=== PATIENT | female | born 1990 | race Caucasian/White ===

== ENCOUNTER → 2017-09-08 | Outpatient (CLI) | payer MEDICAID ==
--- NOTE | 2017-09-08 15:30 | Diagnostic Imaging Report ---
INDICATION: survey. TECHNIQUE: Multiple real-time grayscale images were obtained over the gravid uterus. COMPARISON: None FINDINGS: heart rate is 133 beats per minute. The placenta is anterior and extends to the lower uterine segment at 1.6 cm from the internal os. The cervix is 5.9 cm in length and is closed. There is adequate amniotic fluid seen. The kidneys, umbilical arteries, bladder, stomach, the posterior fossa and lateral ventricles appear unremarkable. The spine appear unremarkable. The four-chamber view and cord insertion are not well seen. The maternal adnexa appear obscured by the gravid uterus. Biometrical measurements are as follows: Biparietal 4.67 cm, age 20 weeks 1 days. Head circumference 17.60 cm, age 20 weeks 1 days. Abdominal circumference 15.80 cm, age 21 weeks 0 days. Femur length 3.13 cm, age 19 weeks 6 days. Sonographic estimate age: 20 weeks 2 days. Sonographic estimated date of delivery: 01-24. Estimated Weight: 348 gm (+/- 51 gm). LMP percentile: 73%. heart rate: 133 beats per minute. number: 1 of 1. IMPRESSION: 1. Followup within 2 weeks is suggested to reassess cord insertion and four-chamber view not well seen due to position. 2. Low-lying placenta. Dictated by: Dictated on workstation # [id number]
== END ==
LOC: RAD 10:58
PROVIDERS: ATTEND Obstetrics & Gynecology
DX: Z34.92 Encounter for supervision of normal pregnancy, unspecified, second trimester (principal); Z3A.20 20 weeks gestation of pregnancy
CPT/HCPCS: 76805

== ENCOUNTER → 2017-11-07 | Outpatient (CLI) | payer MEDICAID ==
--- NOTE | 2017-11-10 09:43 | Diagnostic Imaging Report ---
INDICATION: Followup low lying placenta. TECHNIQUE: Multiple real-time grayscale images were obtained over the gravid uterus. COMPARISON: 09/08/2017. FINDINGS: The fetus is in breech presentation. The placenta is anteriorly located and has appropriately migrated superiorly. There is no marginal placenta or placenta previa. Cervix is closed measuring approximately 4 cm in length. heart rate measures 128 beats per minute. The AILYN is normal at 12 cm. Limited anatomy survey demonstrates the umbilical cord insertion and four-chamber heart to be normal. IMPRESSION: 1. Resolution of low-lying/marginal placenta. 2. Umbilical cord insertion and four-chamber heart are both normal. Dictated by: Dictated on workstation # [id number]
== END ==
LOC: RAD 11:27
PROVIDERS: ATTEND Obstetrics & Gynecology
DX: O44.42 Low lying placenta NOS or without hemorrhage, second trimester (principal); Z3A.28 28 weeks gestation of pregnancy
CPT/HCPCS: 76816

== ENCOUNTER 2017-11-20 11:15 | Outpatient (CLI) | payer MEDICAID ==
[~2017-11-20] VITALS: Ht 167.6 cm; Wt 75.3 kg
[2017-11-20 11:25] VITALS: BP 102/59
--- NOTE | 2017-11-20 13:25 | Diagnostic Imaging Report ---
INDICATION: Evaluate placenta. FINDINGS: A biophysical profile was performed. Fetus is in a cephalic presentation. heart rate is recorded at 142 beats per minute. The amniotic fluid index is approximately 14 cm. The placenta is anterior. Biophysical profile score is 6/8 with a 2-point deduction given for lack of breathing movements. IMPRESSION: Biophysical profile score of 6/8, as described. Dictated by: Dictated on workstation # [id number]
[2017-11-20] MEDS ORDERED: PREN-53 PO (13:34)
[2017-11-20] MEDS ORDERED: FERR-84 PO (13:34)
[2017-11-20] MEDS ORDERED: INFLUENZA TRIvalent 2017-2018 0.5 ML/45 MCG SYR IM ONE (14:30)
--- NOTE | 2017-11-21 11:21 | Physician Query-Final Dx ---
ADALGISA LO 11/21/17 1121: Clinic Account Progress/Dx Physician Query: Please give diagnosis Date of Service Nov 20, 2017 at 11:15 NAYLA KUMAR DO 11/21/17 1522: Clinic Account Progress/Dx DIAGNOSIS: Diagnosis 30 week IUP Fall in ADALG[facility] LO Nov 21, 2017 11:21 NAYLA KUMAR DO Nov 21, 2017 15:22
== END 2017-11-20 13:44 | disposition home or self-care (01) ==
LOC: WSo 11:15 → LDRP 11:15 → WSo 13:44
PROVIDERS: ATTEND Obstetrics & Gynecology
DX: Z04.3 Encounter for examination and observation following other accident (principal); Z3A.30 30 weeks gestation of pregnancy
CPT/HCPCS: 76819; 99213

== ENCOUNTER 2018-01-12 05:35 | Outpatient (CLI) | payer MEDICAID ==
[~2018-01-12] VITALS: Ht 167.6 cm; Wt 81.6 kg
[~2018-01-12 05:35] MED LIST: FERR-84 PO; PREN-53 PO
[2018-01-25] MEDS ORDERED: ACHD5005 PO (10:53)
[2018-01-25] MEDS ORDERED: IBUP-844 PO (10:53)
== END 2018-01-12 10:08 ==
LOC: PREOP 05:35
PROVIDERS: ATTEND Obstetrics & Gynecology
DX: Z01.818 Encounter for other preprocedural examination (principal); O34.219 Maternal care for unspecified type scar from previous cesarean delivery; Z40.02 Encounter for prophylactic removal of ovary(s)

== ENCOUNTER 2018-01-23 03:36 | Inpatient (IN) | payer MEDICAID ==
[~2018-01-23] VITALS: Ht 167.6 cm; Wt 82.6 kg
[2018-01-23 11:05] VITALS: BP 108/67
[2018-01-23] MEDS ORDERED: metroNIDAZOLE 500MG/100ML IVPB 100 ML IV ONE (11:15)
[2018-01-23] MEDS ORDERED: ceFAZolin INJECTION 1,000 MG in NS (IVPB) 100 ML IV ONE (11:15)
[2018-01-23] MEDS: LACTATED RINGERS 1,000 ML IV PRN ×3 (11:40→14:32)
--- NOTE | 2018-01-23 11:49 | Progress Note-Pre Operative ---
Pre-Operative Progress Note H&P Reviewed The H&P was reviewed, patient examined and no changes noted. Date Seen by Provider: Jan 23, 2018 Time Seen by Provider: 11:45 Date H&P Reviewed: Jan 23, 2018 Time H&P Reviewed: :45 Pre-Operative Diagnosis: previous section, ovarian cancer risk reduction RICHARD CHIU DO Jan 23, 2018 11:49
[2018-01-23] MEDS ORDERED: BUPIVACAINE SPINAL 0.75% (SENSORCAINE) 2 ML AMP ONE ×2 (11:53→13:20)
[2018-01-23] MEDS ORDERED: raNItidine 50 MG/2 ML INJ (ZANTAC) ONE (11:54)
[2018-01-23] MEDS ORDERED: METOCLOPRAMIDE INJ 10 MG/2 ML (REGLAN) ONE (11:54)
[2018-01-23] MEDS ORDERED: fentaNYL INJECTION 100 MCG/2 ML AMP ONE (11:55)
[2018-01-23] MEDS ORDERED: CITRIC ACID/SOB CIT (BICITRA) 30 ML UDC ONE (11:55)
[2018-01-23] MEDS ORDERED: OXYTOCIN/NORMAL SALINE 1,000 ML IV ONE (11:55)
[2018-01-23 11:56] LABS: BASOPHILS % (AUTO) 0 % (0-10); EOSINOPHILS # (AUTO) 0.1 10^3/uL (0.0-0.3); EOSINOPHILS % (AUTO) 1 % (0-10); HEMATOCRIT 35 % (35-52); HEMOGLOBIN 11.5 G/DL (11.5-16.0); LYMPHOCYTES # (AUTO) 1.3 X 10^3 (1.0-4.0); LYMPHOCYTES % (AUTO) 14 % (12-44); MEAN CORPUSCULAR HEMOGLOBIN 28 PG (25-34); MEAN CORPUSCULAR HGB CONC 33 G/DL (32-36); MEAN CORPUSCULAR VOLUME 86 FL (80-99); MEAN PLATELET VOLUME 11.4 FL (7.4-10.4); MONOCYTES # (AUTO) 0.8 X 10^3 (0.0-1.0); MONOCYTES % (AUTO) 8 % (0-12); NEUTROPHILS % (AUTO) 77 % (42-75); PLATELET COUNT 112 10^3/uL (130-400); RED BLOOD COUNT 4.08 10^6/uL (4.35-5.85); RED CELL DISTRIBUTION WIDTH 18.6 % (10.0-14.5); WHITE BLOOD COUNT 9.1 10^3/uL (4.3-11.0)
[2018-01-23] MEDS ORDERED: METOCLOPRAMIDE INJ 10 MG/2 ML (REGLAN) IV ONE (12:00)
[2018-01-23] MEDS ORDERED: CATHETER FLUSH 10 ML SYR IV PRN (12:00)
[2018-01-23] MEDS ORDERED: CITRIC ACID/SOB CIT (BICITRA) 30 ML UDC PO ONE (12:00)
[2018-01-23] MEDS ORDERED: FAMOTIDINE 20MG/2ML IV (PEPCID) IV ONE (12:00)
[2018-01-23 12:11] LABS: BILIRUBIN,URINE NEGATIVE (NEGATIVE); CLARITY,URINE CLEAR; COLOR,URINE YELLOW; GLUCOSE, URINE (UA) NEGATIVE (NEGATIVE); KETONES,URINE 1+ (NEGATIVE); LEUKOCYTE ESTERASE ,URINE NEGATIVE (NEGATIVE); NITRITE,URINE NEGATIVE (NEGATIVE); PH,URINE 8 (5-9); PROTEIN,URINE NEGATIVE (NEGATIVE); UROBILINOGEN,URINE 1 MG/DL (NORMAL)
[2018-01-23 12:18] LABS: BACTERIA,URINE FEW /HPF
[2018-01-23 12:25] VITALS: BP 115/63
[2018-01-23] MEDS ORDERED: raNItidine 50 MG/2 ML INJ (ZANTAC) IV ONE (12:30)
[2018-01-23] MEDS ORDERED: LACTATED RINGERS 1,000 ML IV ONE (14:28)
[2018-01-23] MEDS ORDERED: D5 LR IV SOLUTION 1,000 ML IV SCH (14:57)
[2018-01-23] MEDS ORDERED: PHENYLEPHRINE 100 MCG/ML 10 ML (ANESTHESIA) SYR ONE (14:58)
[2018-01-23] MEDS ORDERED: HYDROmorphone 2 MG/ML VIAL (DILAUDID) IVP PRN (15:00)
[2018-01-23] MEDS ORDERED: MEASLES,MUMPS,RUBELLA 1 EA INJ SC SCH (15:00)
[2018-01-23] MEDS ORDERED: TETANUS,DIPTH,PERTUSS P/F (BOOSTRIX) 0.5 ML VIAL IM SCH (15:00)
--- NOTE | 2018-01-23 15:04 | Cesarean Section Operative ---
Procedure Procedure Note Pre-operative Diagnosis: Joleen Cordova is a 25 /Para 6 /3 ,Gestational Age39 3/7 weeks with history of previous section, ovarian cancer risk reduction. Post-operative Diagnosis: same, evidence of inactive endometriosis, left paratubal/ovarian cyst Procedure: Repeat low transverse section; risk reducing salpingectomy Physician: RICHARD CHIU Estimated blood loss: 600 mL Disposition: stable Findings: Viable male infant, Apgars 4/8, weight 9#8 oz, intact placenta, 3vc, normal appearing uterus, tubes, and ovaries. Indications:Joleen Cordova is a 27 /Para 6 /3 ,Gestational Age39 3/7 weeks with history of previous section, ovarian cancer risk reduction. Procedure Details: The patient was seen in pre-op and the procedure was discussed with the patient in full, including the risks, benefits, and alternatives. All questions were answered. The patient was taken to the operating room and a time out was performed, verifying patient and procedure. After spinal anesthesia was placed by our anesthesia colleagues, the patient was placed in the dorsal supine with leftward tilt for uterine displacement.~ Her abdomen was then prepped and draped in the typical sterile fashion. A Pfannenstiel skin incision was made using a scalpel and carried down through the underlying fascia. The fascia was incised in the midline and tented up using Lexii clamps. On both the inferior and superior fascia side the rectus muscle was dissected off bluntly and sharply using Rossi scissors. The peritoneum was identified and entered bluntly in the midline. This was then stretched laterally using manual strength. After entering the abdominal cavity and confirming lack of intraperitoneal adhesions, a large Johnny retractor was placed and the lower uterine segment was visualized. A bladder flap was created with the use of Metzenbaum scissors.~ A scalpel was utilized to make a low transverse uterine incision. Amniotomy was performed with an Allis clamp with return of clear fluid. The 's head was grasped and brought to the level of the incision. Fundal pressure was applied and was delivered without difficulty. Mouth and nares were suctioned with bulb suction. After the umbilical cord was clamped and cut, the was handed off to the pediatric staff. A sample of cord blood was then obtained. The placenta was delivered intact via uterine massage. The uterus was exteriorized and cleared of all clots and debris. The uterine incision was closed using 0 Vicryl in a running locked fashion. A second imbricated layer was placed using 0 Vicryl in a running fashion as well. The uterus was flexed forward and the posterior rectouterine space was inspected and cleared of all clots and debris. Again the hysterotomy site was examined and hemostasis was observed. The bilateral tubes and ovaries were examined. There was a right peritubal/ovarian cyst on the surface of the right ovary. In addition there was evidence of scarring along the tubes and the posterior of the uterus, possibly consistent with old endometriosis. The mesosalpinx were incised bilaterally with the bovie and then the LigaSure was used to clamp the cornu and then along the mesosalpinx bilaterally to remove the tube. The entire cystic area was also removed and then the area on the ovary was cauterized to ensure complete removal. The uterus was placed back into the abdominal cavity and abdominal gutters were cleared of all clots and debris. A final check of the uterine incision showed it to be hemostatic. The peritoneum was closed using 3-0 Vicryl in a running fashion. The fascia was closed with 0 Vicryl in a running fashion. The subcutaneous space was hemostatic, and irrigated. The subcutaneous space was closed with 3-0 Plain in several single interrupted stitches. The skin was then closed using 4-0 Monocryl in a running subcuticular fashion. The skin edges were reapproximated together and were hemostatic. [place] was placed. A pressure dressing was applied. All sponge, lap and needle counts were correct at the end of the procedure per nursing. Vitals - Labs Vital Signs - I&O Vital Signs Date Time Temp Pulse Resp B/P (MAP) Pulse Ox O2 Delivery O2 Flow Rate FiO2 01/23/18 12:25 98.4 82 18 115/63 (80) 98 Room Air 01/23/18 11:05 98.0 84 18 108/67 (81) 98 Room Air Labs Laboratory Tests 01/23/18 11:40: White Blood Count 9.1, Red Blood Count 4.08L, Hemoglobin 11.5, Hematocrit 35, Mean Corpuscular Volume 86, Mean Corpuscular Hemoglobin 28, Mean Corpuscular Hemoglobin Concent 33, Red Cell Distribution Width 18.6H, Platelet Count 112L, Mean Platelet Volume 11.4H, Neutrophils (%) (Auto) 77H, Lymphocytes (%) (Auto) 14, Monocytes (%) (Auto) 8, Eosinophils (%) (Auto) 1, Basophils (%) (Auto) 0, Neutrophils # (Auto) 7.0, Lymphocytes # (Auto) 1.3, Monocytes # (Auto) 0.8, Eosinophils # (Auto) 0.1, Basophils # (Auto) 0.0 01/23/18 12:00: Urine Color YELLOW, Urine Clarity CLEAR, Urine pH 8, Urine Specific [place] 1.010L, Urine Protein NEGATIVE, Urine Glucose (UA) NEGATIVE, Urine Ketones 1+H, Urine Nitrite NEGATIVE, Urine Bilirubin NEGATIVE, Urine Urobilinogen 1, Urine Leukocyte Esterase NEGATIVE, Urine RBC (Auto) NEGATIVE, Urine RBC 2-5H, Urine WBC NONE, Urine Squamous Epithelial Cells 5-10, Urine Crystals NONE, Urine Bacteria FEWH, Urine Casts NONE, Urine Mucus SMALLH, Urine Culture Indicated NO RICHARD CHIU DO Jan 23, 2018 15:04
[2018-01-23] MEDS: OXYTOCIN/NORMAL SALINE 500 ML IV SCH ×2 (15:10→18:09)
[2018-01-23] MEDS: KETOROLAC 30 MG/ML VIAL IVP SCH ×2 (16:32→21:55)
[2018-01-23] MEDS: HYDROcodone/APAP 5 MG/325 MG (LORTAB) TAB PO PRN ×2 (18:12→18:54)
[2018-01-23 20:35] VITALS: BP 112/68
[2018-01-23] MEDS: CATHETER FLUSH 10 ML SYR IV SCH (21:55)
[2018-01-24 00:04] VITALS: BP 99/64
[2018-01-24] MEDS: HYDROcodone/APAP 5 MG/325 MG (LORTAB) TAB PO PRN ×3 (00:04→19:59)
[2018-01-24] MEDS: DOCUSATE SODIUM 100 MG (COLACE) CAP PO SCH ×3 (00:04→19:59)
[2018-01-24 04:16] VITALS: BP 98/65
[2018-01-24] MEDS: CATHETER FLUSH 10 ML SYR IV SCH (04:16)
[2018-01-24] MEDS: KETOROLAC 30 MG/ML VIAL IVP SCH ×2 (04:16→11:02)
[2018-01-24 05:46] LABS: BASOPHILS % (AUTO) 0 % (0-10); EOSINOPHILS # (AUTO) 0.1 10^3/uL (0.0-0.3); EOSINOPHILS % (AUTO) 1 % (0-10); HEMATOCRIT 31 % (35-52); HEMOGLOBIN 10.3 G/DL (11.5-16.0); LYMPHOCYTES # (AUTO) 1.4 X 10^3 (1.0-4.0); LYMPHOCYTES % (AUTO) 19 % (12-44); MEAN CORPUSCULAR HEMOGLOBIN 28 PG (25-34); MEAN CORPUSCULAR HGB CONC 33 G/DL (32-36); MEAN CORPUSCULAR VOLUME 86 FL (80-99); MEAN PLATELET VOLUME 10.8 FL (7.4-10.4); MONOCYTES # (AUTO) 0.8 X 10^3 (0.0-1.0); MONOCYTES % (AUTO) 10 % (0-12); NEUTROPHILS # (AUTO) 5.4 X 10^3 (1.8-7.8); NEUTROPHILS % (AUTO) 70 % (42-75); PLATELET COUNT 100 10^3/uL (130-400); RED BLOOD COUNT 3.63 10^6/uL (4.35-5.85); RED CELL DISTRIBUTION WIDTH 18.6 % (10.0-14.5); WHITE BLOOD COUNT 7.6 10^3/uL (4.3-11.0)
[2018-01-24 08:00] VITALS: BP 107/73
[2018-01-24] MEDS: FERROUS SULF 325 MG (IRON) TAB PO SCH (08:53)
--- NOTE | 2018-01-24 11:02 | Postpartum Progress Note ---
Post Op Post-operative Day #1 RLTCS with RRS Subjective: Patient is without complaints. Ambulating, voiding after zhou removed. Tolerating a regular diet without nausea or vomiting. Normal lochia. Pain is well controlled with oral pain medications. Passing flatus. bottle feeding. baby still on O2 Objective: Laboratory Tests Test 01/23/18 11:40 01/23/18 12:00 01/24/18 05:31 Range/Units White Blood Count 9.1 7.6 4.3-11.0 10^3/uL Red Blood Count 4.08 L 3.63 L 4.35-5.85 10^6/uL Hemoglobin 11.5 10.3 L 11.5-16.0 G/DL Hematocrit 35 31 L 35-52 % Mean Corpuscular Volume 86 86 80-99 FL Mean Corpuscular Hemoglobin 28 28 25-34 PG Mean Corpuscular Hemoglobin Concent 33 33 32-36 G/DL Red Cell Distribution Width 18.6 H 18.6 H 10.0-14.5 % Platelet Count 112 L 100 L 130-400 10^3/uL Mean Platelet Volume 11.4 H 10.8 H 7.4-10.4 FL Neutrophils (%) (Auto) 77 H 70 42-75 % Lymphocytes (%) (Auto) 14 19 12-44 % Monocytes (%) (Auto) 8 10 0-12 % Eosinophils (%) (Auto) 1 1 0-10 % Basophils (%) (Auto) 0 0 0-10 % Neutrophils # (Auto) 7.0 5.4 1.8-7.8 X 10^3 Lymphocytes # (Auto) 1.3 1.4 1.0-4.0 X 10^3 Monocytes # (Auto) 0.8 0.8 0.0-1.0 X 10^3 Eosinophils # (Auto) 0.1 0.1 0.0-0.3 10^3/uL Basophils # (Auto) 0.0 0.0 0.0-0.1 10^3/uL Urine Color YELLOW Urine Clarity CLEAR Urine pH 8 5-9 Urine Specific [place] 1.010 L 1.016-1.022 Urine Protein NEGATIVE NEGATIVE Urine Glucose (UA) NEGATIVE NEGATIVE Urine Ketones 1+ H NEGATIVE Urine Nitrite NEGATIVE NEGATIVE Urine Bilirubin NEGATIVE NEGATIVE Urine Urobilinogen 1 NORMAL MG/DL Urine Leukocyte Esterase NEGATIVE NEGATIVE Urine RBC (Auto) NEGATIVE NEGATIVE Urine RBC 2-5 H /HPF Urine WBC NONE /HPF Urine Squamous Epithelial Cells 5-10 /HPF Urine Crystals NONE /LPF Urine Bacteria FEW H /HPF Urine Casts NONE /LPF Urine Mucus SMALL H /LPF Urine Culture Indicated NO Physical Exam: General - Alert and oriented, no apparent distress Abdomen - Soft, appropriately tender to palpation, non-distended, fundus firm at umbilicus Incision - clean, dry and intact; no erythema or induration, no drainage Extremities - no edema, negative Gracie's bilaterally Assessment: 1. post-operative day # 1, status post RLTCS with RRS. Recovering well, hemodynamically stable 2. Acute blood loss anemia 3. gestational thrombocytopenia, no evidence of bleeding. Plan: Routine post-operative care. Encourage breast feeding. Encourage ambulation. VTE prophylaxis: SCDs. Ferrous sulfate supplementation. Plan for discharge tomorrow Vitals - Labs Vital Signs - I&O Vital Signs Date Time Temp Pulse Resp B/P (MAP) Pulse Ox O2 Delivery O2 Flow Rate FiO2 01/24/18 08:00 98.6 71 18 107/73 (84) 97 Room Air 01/24/18 04:16 97.7 62 16 98/65 (76) 97 Room Air 01/24/18 00:04 98.0 69 18 99/64 (76) 97 Room Air 01/23/18 20:35 98.2 77 18 112/68 (83) 98 Room Air 01/23/18 12:25 98.4 82 18 115/63 (80) 98 Room Air 01/23/18 11:05 98.0 84 18 108/67 (81) 98 Room Air I & O 01/24/18 07:00 Intake Total 5382 ml Output Total 1130 ml Balance 4252 ml Labs Laboratory Tests 01/23/18 11:40: White Blood Count 9.1, Red Blood Count 4.08L, Hemoglobin 11.5, Hematocrit 35, Mean Corpuscular Volume 86, Mean Corpuscular Hemoglobin 28, Mean Corpuscular Hemoglobin Concent 33, Red Cell Distribution Width 18.6H, Platelet Count 112L, Mean Platelet Volume 11.4H, Neutrophils (%) (Auto) 77H, Lymphocytes (%) (Auto) 14, Monocytes (%) (Auto) 8, Eosinophils (%) (Auto) 1, Basophils (%) (Auto) 0, Neutrophils # (Auto) 7.0, Lymphocytes # (Auto) 1.3, Monocytes # (Auto) 0.8, Eosinophils # (Auto) 0.1, Basophils # (Auto) 0.0 01/23/18 12:00: Urine Color YELLOW, Urine Clarity CLEAR, Urine pH 8, Urine Specific [place] 1.010L, Urine Protein NEGATIVE, Urine Glucose (UA) NEGATIVE, Urine Ketones 1+H, Urine Nitrite NEGATIVE, Urine Bilirubin NEGATIVE, Urine Urobilinogen 1, Urine Leukocyte Esterase NEGATIVE, Urine RBC (Auto) NEGATIVE, Urine RBC 2-5H, Urine WBC NONE, Urine Squamous Epithelial Cells 5-10, Urine Crystals NONE, Urine Bacteria FEWH, Urine Casts NONE, Urine Mucus SMALLH, Urine Culture Indicated NO 01/24/18 05:31: White Blood Count 7.6, Red Blood Count 3.63L, Hemoglobin 10.3L, Hematocrit 31L, Mean Corpuscular Volume 86, Mean Corpuscular Hemoglobin 28, Mean Corpuscular Hemoglobin Concent 33, Red Cell Distribution Width 18.6H, Platelet Count 100L, Mean Platelet Volume 10.8H, Neutrophils (%) (Auto) 70, Lymphocytes (%) (Auto) 19 , Monocytes (%) (Auto) 10, Eosinophils (%) (Auto) 1, Basophils (%) (Auto) 0, Neutrophils # (Auto) 5.4, Lymphocytes # (Auto) 1.4, Monocytes # (Auto) 0.8, Eosinophils # (Auto) 0.1, Basophils # (Auto) 0.0 RICHARD CHIU DO Jan 24, 2018 11:02
[2018-01-24 13:37] VITALS: BP 102/70
[2018-01-24] MEDS: IBUPROFEN 600 MG (MOTRIN) TAB PO SCH ×2 (15:04→20:49)
[2018-01-24 20:00] VITALS: BP 104/70
[2018-01-25 01:55] VITALS: BP 103/63
[2018-01-25] MEDS: IBUPROFEN 600 MG (MOTRIN) TAB PO SCH ×3 (01:55→14:51)
[2018-01-25 05:34] LABS: BASOPHILS % (AUTO) 0 % (0-10); EOSINOPHILS # (AUTO) 0.1 10^3/uL (0.0-0.3); EOSINOPHILS % (AUTO) 1 % (0-10); HEMATOCRIT 33 % (35-52); HEMOGLOBIN 10.7 G/DL (11.5-16.0); LYMPHOCYTES # (AUTO) 1.6 X 10^3 (1.0-4.0); LYMPHOCYTES % (AUTO) 25 % (12-44); MEAN CORPUSCULAR HEMOGLOBIN 28 PG (25-34); MEAN CORPUSCULAR HGB CONC 32 G/DL (32-36); MEAN CORPUSCULAR VOLUME 87 FL (80-99); MEAN PLATELET VOLUME 10.6 FL (7.4-10.4); MONOCYTES # (AUTO) 0.7 X 10^3 (0.0-1.0); MONOCYTES % (AUTO) 10 % (0-12); NEUTROPHILS # (AUTO) 4.2 X 10^3 (1.8-7.8); NEUTROPHILS % (AUTO) 64 % (42-75); PLATELET COUNT 108 10^3/uL (130-400); RED BLOOD COUNT 3.81 10^6/uL (4.35-5.85); RED CELL DISTRIBUTION WIDTH 18.5 % (10.0-14.5); WHITE BLOOD COUNT 6.6 10^3/uL (4.3-11.0)
--- NOTE | 2018-01-25 06:34 | Anesthesia-Regional Post-Op ---
Regional Patient Condition Mental Status: Alert, Oriented x3 Circulation: Same as Pre-Op Headache: Absent Sensation: Full Recovery Motor Block: Absent Post Op Complications Complications None Follow Up Care/Instructions Patient Instructions None needed. Anesthesia/Patient Condition Patient is doing well, no complaints, stable vital signs, no apparent adverse anesthesia problems. No complications reported per nursing. Pt seen 01-24-18 D/C home [place] [facility] [place]: No BOB SCHULTZ CRNA Jan 25, 2018 06:34
[2018-01-25 08:55] VITALS: BP 97/65
[2018-01-25] MEDS: FERROUS SULF 325 MG (IRON) TAB PO SCH (08:55)
[2018-01-25] MEDS: DOCUSATE SODIUM 100 MG (COLACE) CAP PO SCH (08:55)
[2018-01-25] MEDS ORDERED: ACHD5005 PO (10:53)
[2018-01-25] MEDS ORDERED: IBUP-844 PO (10:53)
--- NOTE | 2018-01-25 10:57 | Discharge Inst-Women's Service ---
Discharge Inst-Women's Serv Depart Medication/Instructions New, Converted or Re-Newed RX: RX on Chart Instructions nothing in the vagina for 6 weeks no driving for 1 week keep incision clean and dry Final Diagnosis Previous section risk reduction of ovarian cancer gestational thrombocytopenia mild acute blood loss anemia Procedure Repeat section risk reduction salpingectomy Consults/Follow Up Additional Follow Up: Yes (1-2 weeks for incision check with Linda/Ray; 6 weeks for pp exam) Activity Activity: Activity as Tolerated Driving Instructions: No Driving for 1 Week NO SMOKING: NO SMOKING Nothing Inside Vagina: No Douching, No Animas, No Tampons Diet Discharge Diet: No Restrictions Symptoms to Report to : Swelling Increased, Bleeding Excessive, Fever Over 101 Degrees F, Vaginal Bleeding Increase, Cramps in Feet or Legs, Vaginal Discharge Foul For Any Problems or Questions: Contact Your Physician Skin/Wound Care Infection Signs and Symptoms: Increased Redness, Foul Odor of Wound, Increased Drainage, Skin Itchy or Has a Rash, Increased Swelling, Temperature Above 101 F Operative Area Clean and Dry: Keep Incision Clean/Dry Stitches/Anton/Dermabond: Dermabond Bathing Instructions: RICHARD Giles DO Jan 25, 2018 10:56
--- NOTE | 2018-01-25 12:53 | Postpartum Progress Note ---
Post Op Post-operative Day #2 s/p RLTCS, RRS, gest thrombocytopenic baby will be here until Friday on antibiotics. Subjective: Patient is without complaints. Ambulating, voiding after zhou removed. Tolerating a regular diet without nausea or vomiting. Normal lochia. Pain is well controlled with oral pain medications. Passing flatus. Objective: Laboratory Tests Test 01/25/18 05:27 Range/Units White Blood Count 6.6 4.3-11.0 10^3/uL Red Blood Count 3.81 L 4.35-5.85 10^6/uL Hemoglobin 10.7 L 11.5-16.0 G/DL Hematocrit 33 L 35-52 % Mean Corpuscular Volume 87 80-99 FL Mean Corpuscular Hemoglobin 28 25-34 PG Mean Corpuscular Hemoglobin Concent 32 32-36 G/DL Red Cell Distribution Width 18.5 H 10.0-14.5 % Platelet Count 108 L 130-400 10^3/uL Mean Platelet Volume 10.6 H 7.4-10.4 FL Neutrophils (%) (Auto) 64 42-75 % Lymphocytes (%) (Auto) 25 12-44 % Monocytes (%) (Auto) 10 0-12 % Eosinophils (%) (Auto) 1 0-10 % Basophils (%) (Auto) 0 0-10 % Neutrophils # (Auto) 4.2 1.8-7.8 X 10^3 Lymphocytes # (Auto) 1.6 1.0-4.0 X 10^3 Monocytes # (Auto) 0.7 0.0-1.0 X 10^3 Eosinophils # (Auto) 0.1 0.0-0.3 10^3/uL Basophils # (Auto) 0.0 0.0-0.1 10^3/uL 01/25/18 01:55 Temp 97.9 Pulse 67 Resp 18 B/P (MAP) 103/63 (76) Pulse Ox 98 O2 Delivery Room Air Physical Exam: General - Alert and oriented, no apparent distress Abdomen - Soft, appropriately tender to palpation, non-distended, fundus firm at umbilicus Incision - clean, dry and intact; no erythema or induration, no drainage Extremities - no edema, negative Gracie's bilaterally Assessment: 1. post-operative day # 2, status post RLTCS, RRS. Recovering well, hemodynamically stable Plan: Routine post-operative care. Encourage breast feeding. Encourage ambulation. VTE prophylaxis: SCDs. Ferrous sulfate supplementation. Plan for discharge today to room in Vitals - Labs Vital Signs - I&O Vital Signs Date Time Temp Pulse Resp B/P (MAP) Pulse Ox O2 Delivery O2 Flow Rate FiO2 01/25/18 01:55 97.9 67 18 103/63 (76) 98 Room Air 01/24/18 20:00 98.6 70 18 104/70 (81) 98 Room Air 01/24/18 13:37 97.0 71 16 102/70 (81) 99 Room Air I & O 01/25/18 07:00 Intake Total 500 ml Balance 500 ml Labs Laboratory Tests 01/25/18 05:27: White Blood Count 6.6, Red Blood Count 3.81L, Hemoglobin 10.7L, Hematocrit 33L, Mean Corpuscular Volume 87, Mean Corpuscular Hemoglobin 28, Mean Corpuscular Hemoglobin Concent 32, Red Cell Distribution Width 18.5H, Platelet Count 108L, Mean Platelet Volume 10.6H, Neutrophils (%) (Auto) 64, Lymphocytes (%) (Auto) 25 , Monocytes (%) (Auto) 10, Eosinophils (%) (Auto) 1, Basophils (%) (Auto) 0, Neutrophils # (Auto) 4.2, Lymphocytes # (Auto) 1.6, Monocytes # (Auto) 0.7, Eosinophils # (Auto) 0.1, Basophils # (Auto) 0.0 Microbiology 01/23/18 MRSA Screen - Final, Complete No growth RICHARD CHIU DO Jan 25, 2018 12:53
[2018-01-25 14:50] VITALS: BP 109/75
[2018-01-25] MEDS: HYDROcodone/APAP 5 MG/325 MG (LORTAB) TAB PO PRN (14:51)
== END 2018-01-25 16:35 | disposition home or self-care (01) | DRG 766 ==
LOC: LDRP 10:50
PROVIDERS: ADMIT Obstetrics & Gynecology; ATTEND Obstetrics & Gynecology
PROC: 0UT70ZZ Resection of Bilateral Fallopian Tubes, Open Approach (ICD-10-PCS; 2018-01-23)
PROC: 10D00Z1 Extraction of Products of Conception, Low, Open Approach (ICD-10-PCS; principal; 2018-01-23 13:47)
DX: O34.211 Maternal care for low transverse scar from previous cesarean delivery (principal); O34.83 Maternal care for other abnormalities of pelvic organs, third trimester; N83.202 Unspecified ovarian cyst, left side; Z3A.39 39 weeks gestation of pregnancy; Z37.0 Single live birth
CPT/HCPCS: 36415; 81000; 85025; 86850; 86900; 86901; 87081; 88302; 88307; 94664

== ENCOUNTER → 2019-10-12 | Outpatient (CLI) | payer BC ==
[~2019-10-12] MED LIST changes: +ACHD5005 PO; +IBUP-844 PO
--- NOTE | 2019-10-12 16:43 | Diagnostic Imaging Report ---
INDICATION: Back pain. AP and lateral views of the thoracic spine are obtained. The thoracic vertebrae are normal in height and alignment. There is no fracture or subluxation. There is no significant disc space narrowing or degenerative change. IMPRESSION: Negative thoracic spine series. Dictated by: Dictated on workstation # [id number]
== END ==
LOC: RAD FS 09:59
PROVIDERS: ATTEND Family Medicine
DX: M54.6 Pain in thoracic spine (principal)
CPT/HCPCS: 72070

== ENCOUNTER 2020-01-03 09:08 | Emergency (ER) | payer BC ==
[~2020-01-03] VITALS: Ht 167.7 cm; Wt 72.5 kg
--- NOTE | 2020-01-03 09:12 | ED Neurological Problem ---
General Stated Complaint: DIZZINESS Source: patient Exam Limitations: no limitations History of Present Illness Date Seen by Provider: Jan 03, 2020 Time Seen by Provider: 09:11 Initial Comments 29-year-old female presents with dizziness. Patient reports she has a headache with a history of migraines. She reports that the symptoms worsen with any head movement or standing up. Patient denies any cough, fevers, chills, diarrhea. She does have some mild nausea. She denies any vision changes, ear pain. She does not have any known sick contacts. Allergies and Home Medications Allergies Coded Allergies: No Known Drug Allergies (Unverified , 11/20/17) Home Medications Ferrous Sulfate 325 Mg Tablet, 325 MG PO DAILY, (Reported) Hydrocodone Bit/Acetaminophen 1 Tab Tab, 1-2 TAB PO Q4H PRN for PAIN-MODERATE Prescribed by: RICHARD CHIU on 01/25/18 1053 Ibuprofen 600 Mg Tablet, 600 MG PO Q6H Prescribed by: RICHARD CHIU on 01/25/18 1053 Okr151/Iron Fumarate/FA/Dss 1 Each Tablet, 1 EACH PO DAILY, (Reported) Patient Home Medication List Home Medication List Reviewed: Yes Review of Systems Review of Systems Constitutional: No chills; dizziness; No fever Eyes: Denies Blurred Vision, Denies Pain, Denies Photophobia Ears, Nose, Mouth, Throat: no symptoms reported Respiratory: no symptoms reported; No cough, No short of breath Cardiovascular: No chest pain Gastrointestinal: No abdominal pain; nausea Genitourinary: no symptoms reported Musculoskeletal: no symptoms reported Psychiatric/Neurological: Headache Past Cdaeyds-Qtvtmx-Xbmlux Hx Past Med/Social Hx: Reviewed Nursing Past Med/Soc Hx Patient Social History Type Used: Cigarettes Former Smoker, Quit: Mar 29, 2017 Recent Foreign Travel: No Contact w/Someone Who Travel: No Recent Hopitalizations: No Immunizations Up To Date PED Vaccines UTD: Yes Seasonal Allergies Seasonal Allergies: No Past Medical History Surgeries: Yes Respiratory: No Cardiac: No Neurological: Yes Sexually Transmitted Disease: No HIV/AIDS: No Genitourinary: Yes Gastrointestinal: No Musculoskeletal: No Endocrine: No HEENT: No Loss of Vision: Denies Hearing Impairment: Denies Cancer: No Psychosocial: No Integumentary: No Blood Disorders: Yes (ANEMIA) Adverse Reaction/Blood Tranf: No Family Medical History Cardiovascular disease 19 FATHER Completed stroke 19 MOTHER (tia) FHx: multiple sclerosis 19 MOTHER Hypertension 19 FATHER Respiratory disorder 19 FATHER Physical Exam Vital Signs Vital Signs - First Documented 01/03/20 09:11 Temp 36.3 Pulse 72 Resp 14 B/P (MAP) 130/74 (92) Pulse Ox 97 O2 Delivery Room Air Capillary Refill : Height, Weight, BMI Height: 5'6.00" Weight: 182lbs. 0.3oz. 82.671254lj; 29.4 BMI Method: General Appearance: WD/WN, no apparent distress HEENT: PERRL/EOMI, normal ENT inspection, TMs normal Neck: full range of motion, supple Respiratory: lungs clear, normal breath sounds, no respiratory distress Cardiovascular: normal peripheral pulses, regular rate, rhythm Gastrointestinal: non tender, soft Extremities: non-tender Neurologic/Psychiatric: pst manager II-XII nml as tested, no motor/sensory deficits, alert, normal mood/affect, oriented x 3 Coordination/Gait: normal finger to nose, normal gait Motor/Sensory: no motor deficit, no sensory deficit, no pronator drift Skin: normal color, warm/dry Lymphatic: no adenopathy Progress/Results/Core Measures Results/Orders Lab Results Laboratory Tests Test 01/03/20 09:30 Range/Units White Blood Count 5.1 4.3-11.0 10^3/uL Red Blood Count 4.73 4.35-5.85 10^6/uL Hemoglobin 12.4 11.5-16.0 G/DL Hematocrit 39 35-52 % Mean Corpuscular Volume 83 80-99 FL Mean Corpuscular Hemoglobin 26 25-34 PG Mean Corpuscular Hemoglobin Concent 32 32-36 G/DL Red Cell Distribution Width 13.6 10.0-14.5 % Platelet Count 163 130-400 10^3/uL Mean Platelet Volume 11.4 H 7.4-10.4 FL Neutrophils (%) (Auto) 63 42-75 % Lymphocytes (%) (Auto) 28 12-44 % Monocytes (%) (Auto) 7 0-12 % Eosinophils (%) (Auto) 2 0-10 % Basophils (%) (Auto) 0 0-10 % Neutrophils # (Auto) 3.2 1.8-7.8 X 10^3 Lymphocytes # (Auto) 1.4 1.0-4.0 X 10^3 Monocytes # (Auto) 0.4 0.0-1.0 X 10^3 Eosinophils # (Auto) 0.1 0.0-0.3 10^3/uL Basophils # (Auto) 0.0 0.0-0.1 10^3/uL Sodium Level 139 135-145 MMOL/L Potassium Level 4.0 3.6-5.0 MMOL/L Chloride Level 105 98-107 MMOL/L Carbon Dioxide Level 24 21-32 MMOL/L Anion Gap 10 5-14 MMOL/L Blood Urea Nitrogen 12 7-18 MG/DL Creatinine 0.76 0.60-1.30 MG/DL Estimat Glomerular Filtration Rate > 60 BUN/Creatinine Ratio 16 Glucose Level 109 H 70-105 MG/DL Calcium Level 9.1 8.5-10.1 MG/DL Corrected Calcium 8.7 8.5-10.1 MG/DL Total Bilirubin 0.5 0.1-1.0 MG/DL Aspartate Amino Transf (AST/SGOT) 15 5-34 U/L Alanine Aminotransferase (ALT/SGPT) 17 0-55 U/L Alkaline Phosphatase 51 40-136 U/L C-Reactive Protein 0.18 <0.50 MG/DL Total Protein 7.1 6.4-8.2 GM/DL Albumin 4.5 3.2-4.5 GM/DL My Orders Orders - BASSAM WILD DO Cbc With Automated Diff (01/03/20 09:20) Comprehensive Metabolic Panel (01/03/20 09:20) Ua Culture If Indicated (01/03/20 09:20) Crp Fs (01/03/20 09:20) Ketorolac Injection (Toradol Injection) (01/03/20 09:20) Metoclopramide Injection (Reglan Injecti (01/03/20 09:20) Ns Iv 1000 Ml (Sodium Chloride 0.9%) (01/03/20 09:20) Ed Iv/Invasive Line Start (01/03/20 09:20) Diphenhydramine Injection (Benadryl Inje (01/03/20 09:30) Medications Given in ED Current Medications Medications Dose Ordered Sig/Ronn Route Start Time Stop Time Status Last Admin Dose Admin Diphenhydramine HCl 25 mg ONCE ONCE IVP 01/03/20 09:30 01/03/20 09:31 DC 01/03/20 09:36 25 MG Vital Signs/I&O 01/03/20 09:11 Temp 36.3 Pulse 72 Resp 14 B/P (MAP) 130/74 (92) Pulse Ox 97 O2 Delivery Room Air Progress Progress Note : Time: 10:18 Progress Note Patient's symptoms completely resolved following treatment. Patient symptoms and response to treatment is very consistent with a migraine. Patient will be discha rged home in stable condition. Departure Impression Primary Impression: Migraine headache Qualified Codes: G43.909 - Migraine, unspecified, not intractable, without status migrainosus Disposition: HOME, SELF-CARE Condition: Stable Departure-Patient Inst. Referrals: TESSY TORRES MD (PCP/Family) Primary Care Physician Patient Instructions: Migraine Headaches in Adults, Headache, Adult Add. Discharge Instructions: Emergency department focuses on treating and ruling out life-threatening diseases. Whenever possible, a diagnosis is given. However, most patients are given an impression based on their history, physical exam, and workup during your brief time in the ER. Information about probable diagnosis and other educational material has been provided. Please take the time to read and understand this information. It is very important that you follow up with a physician as discussed during the visit today. Failure to adhere to your follow-up instructions may lead to severe disability, injury, or so please make sure to keep your appointments or obtain one as requested. Please keep in mind the emergency department is not designed to your primary care or "family doctor" and nonurgent issues are best evaluated by an outpatient physician BASSAM WILD DO Jan 03, 2020 09:12
--- OUTSIDE RECORDS SUMMARY | 2020-01-03 09:14 | XMS REPORT | Continuity of Care Document ---
Author Organization Unknown Address Unknown Phone Unavailable Allergies There is no data. Medications There is no data. Problems There is no data. Procedures There is no data. Results Test Result Range CBC - 06/28/19 08:50 WHITE BLOOD CELL COUNT 4.4 Thousand/uL 3 .8-10.8 RED BLOOD CELL COUNT 4.85 Million/uL 3.8 0-5.10 HEMOGLOBIN 13.1 g/dL 11.7-15.5 HEMATOCRIT 41.0 % 35.0-45.0 MCV 84.5 fL 80.0-100.0 MCH 27.0 pg 27.0-33.0 MCHC 32.0 g/dL 32.0-36.0 RDW 13.7 % 11.0-15.0 PLATELET COUNT 174 Thousand/uL 140-400 MPV 10.7 fL 7.5-12.5 ABSOLUTE NEUTROPHILS 2372 cells/uL 1500- 7800 ABSOLUTE LYMPHOCYTES 1443 cells/uL 850-3 900 ABSOLUTE MONOCYTES 427 cells/uL 200-950 ABSOLUTE EOSINOPHILS 119 cells/uL 15-500 ABSOLUTE BASOPHILS 40 cells/uL 0-200 NEUTROPHILS 53.9 % NRG LYMPHOCYTES 32.8 % NRG MONOCYTES 9.7 % NRG EOSINOPHILS 2.7 % NRG BASOPHILS 0.9 % NRG TSH - 06/28/19 08:50 TSH 2.10 mIU/L NRG VITAMIN D, 25-H - 06/28/19 08:50 VITAMIN D,25-OH,TOTAL,IA 31 ng/mL 30-10 0 VITAMIN B12 - 06/28/19 08:50 VITAMIN B12 373 pg/mL 200-1100 Encounters ACCT No. Visit Date/Time Discharge Status Pt. Type Provider Facility Loc./Unit Complaint [id number] 10/22/2019 14:10:00 10/22/2019 23:59: 59 [facility] Outpatient TESSY TORRES [facility] [id number] 06/28/2019 08:00:00 Document Registration
[2020-01-03] MEDS ORDERED: METOCLOPRAMIDE INJ 10 MG/2 ML (REGLAN) IVP STA (09:20)
[2020-01-03] MEDS ORDERED: KETOROLAC 30 MG/ML VIAL IVP STA (09:20)
[2020-01-03] MEDS ORDERED: NS IV 1000 ML 1,000 ML IV STA (09:20)
[2020-01-03] MEDS ORDERED: diphenhydrAMINE 50 MG/ML INJ (BENADRYL) IVP ONE (09:30)
[2020-01-03 09:54] LABS: HEMATOCRIT 39 % (35-52); HEMOGLOBIN 12.4 G/DL (11.5-16.0); MEAN CORPUSCULAR HEMOGLOBIN 26 PG (25-34); MEAN CORPUSCULAR VOLUME 83 FL (80-99); WHITE BLOOD COUNT 5.1 10^3/uL (4.3-11.0)
[2020-01-03 09:55] LABS: BASOPHILS % (AUTO) 0 % (0-10); EOSINOPHILS # (AUTO) 0.1 10^3/uL (0.0-0.3); EOSINOPHILS % (AUTO) 2 % (0-10); LYMPHOCYTES # (AUTO) 1.4 X 10^3 (1.0-4.0); LYMPHOCYTES % (AUTO) 28 % (12-44); MEAN CORPUSCULAR HGB CONC 32 G/DL (32-36); MEAN PLATELET VOLUME 11.4 FL (7.4-10.4); MONOCYTES # (AUTO) 0.4 X 10^3 (0.0-1.0); MONOCYTES % (AUTO) 7 % (0-12); NEUTROPHILS # (AUTO) 3.2 X 10^3 (1.8-7.8); NEUTROPHILS % (AUTO) 63 % (42-75); PLATELET COUNT 163 10^3/uL (130-400); RED CELL DISTRIBUTION WIDTH 13.6 % (10.0-14.5)
[2020-01-03 10:09] LABS: SODIUM 139 MMOL/L (135-145)
[2020-01-03 10:10] LABS: CHLORIDE 105 MMOL/L (98-107)
[2020-01-03 10:11] LABS: ALANINE AMINOTRANSFERASE 17 U/L (0-55); ALBUMIN 4.5 GM/DL (3.2-4.5); ALKALINE PHOSPHATASE 51 U/L (40-136); BILIRUBIN,TOTAL 0.5 MG/DL (0.1-1.0); BUN/CREATININE RATIO 16; CALCIUM 9.1 MG/DL (8.5-10.1); CARBON DIOXIDE 24 MMOL/L (21-32); CREATININE SERUM 0.76 MG/DL (0.60-1.30); GFR ESTIMATED > 60; GLUCOSE 109 MG/DL (70-105); TOTAL PROTEIN 7.1 GM/DL (6.4-8.2)
[2020-01-03 10:42] VITALS: BP 135/71
== END 2020-01-03 10:42 | disposition home or self-care (01) ==
LOC: EDUNIT# 09:08 → ER FS 09:09
DX: G43.909 Migraine, unspecified, not intractable, without status migrainosus (principal); Z87.891 Personal history of nicotine dependence
CPT/HCPCS: 36415; 80053; 85025; 86141

== ENCOUNTER → 2020-05-08 | Outpatient (CLI) | payer BC ==
--- NOTE | 2020-05-08 16:45 | Diagnostic Imaging Report ---
INDICATION: Chronic low back pain. TIME OF EXAM: 03:38 p.m. FINDINGS: Frontal and lateral views of the lumbar spine are obtained. Curvature and alignment is normal. Vertebral body heights and disc spaces are well maintained. No fracture or subluxation is identified. IMPRESSION: Unremarkable lumbar spine radiographs. Dictated by: Dictated on workstation # [id number]
== END ==
LOC: RAD FS 15:25
PROVIDERS: ATTEND Family Medicine
DX: M54.42 Lumbago with sciatica, left side (principal)
CPT/HCPCS: 72100

== ENCOUNTER 2020-09-01 05:32 | Outpatient (RCR) | payer BC ==
[~2020-09-01] VITALS: Ht 167 cm; Wt 70.4 kg
== END 2020-09-01 10:06 | disposition home or self-care (01) ==
LOC: PREOP 05:32
PROVIDERS: ATTEND Obstetrics & Gynecology
DX: Z01.812 Encounter for preprocedural laboratory examination (principal); N92.0 Excessive and frequent menstruation with regular cycle; N93.8 Other specified abnormal uterine and vaginal bleeding

== ENCOUNTER → 2020-09-01 | Outpatient (CLI) | payer BC ==
[~2020-09-01] MED LIST changes: +NORT25CA PO
--- NOTE | 2020-09-01 13:48 | Diagnostic Imaging Report ---
INDICATION: Excessive menstruation. Pelvic sonography performed with transabdominal and transvaginal views. The uterus is retroverted and measured 8.0 x 4.8 x 5.2 cm. There is a trace of fluid in the endometrium which may represent blood given the patient's history. Endometrium measured 9 mm in thickness. The right ovary measured 3.4 x 1.5 x 1.8 cm and appeared normal with normal color flow. The left ovary measured 3.9 x 2.1 x 2.3 cm and contains a collapsing cyst measuring 1.4 x 1.8 x 1.3 cm. There is normal color flow to the left ovary. There is no free fluid. IMPRESSION: There is a trace of fluid in the endometrium which may be blood given the patient's history. Endometrium measured 9 mm in thickness. There is no uterine mass. There is a collapsing cyst in the left ovary measuring 1.8 cm. Dictated by: Dictated on workstation # [id number]
== END ==
LOC: RAD 10:30
PROVIDERS: ATTEND Obstetrics & Gynecology
DX: N92.0 Excessive and frequent menstruation with regular cycle (principal); N83.202 Unspecified ovarian cyst, left side; Z20.828 Contact with and (suspected) exposure to other viral communicable diseases
CPT/HCPCS: 76830; 76856; U0002; 87635

== ENCOUNTER → 2020-09-05 | Day surgery (SDC) | payer BC ==
[~2020-09-05] MED LIST changes: +LACTATED RINGERS 1,000 ML IV PRN; +LIDOCAINE PF 2% 5 ML (XYLOCAINE) VIAL ONE; +MIDAZOLAM 2 MG/2 ML (VERSED) VIAL ONE; +ONDANSETRON 4 MG/2 ML (SDV) Z0FRAN ONE; +ROCURONIUM 10 MG/ML 5 ML SYRINGE IV ONE; +SEVOFLURANE (ULTANE) 15 ML INHAL SOLN ONE; +ceFAZolin INJECTION 1,000 MG in WATER (STERILE) FOR INJECTION 10 ML IV ONE; +fentaNYL INJECTION 100 MCG/2 ML AMP ONE; +metroNIDAZOLE 500MG/100ML IVPB 100 ML IV ONE; +proPOfol 200 MG/20 ML (DIPRIVAN) VIAL IV ONE
[2020-09-05 06:16] LABS: BILIRUBIN,URINE NEGATIVE (NEGATIVE); CLARITY,URINE SL CLOUDY; COLOR,URINE YELLOW; GLUCOSE, URINE (UA) NEGATIVE (NEGATIVE); KETONES,URINE NEGATIVE (NEGATIVE); LEUKOCYTE ESTERASE ,URINE NEGATIVE (NEGATIVE); NITRITE,URINE NEGATIVE (NEGATIVE); PH,URINE 8.5 (5-9); PROTEIN,URINE TRACE (NEGATIVE)
[2020-09-05 06:29] LABS: BACTERIA,URINE TRACE /HPF
--- NOTE | 2020-09-05 06:30 | NUR ---
PATIENT PRESENTED TO [facility] [place] AT 06. URINE OBTAINED. UCG NEGATIVE. VSS. ASSESSED. PLAN OF CARE REVIEWED. HISTORY OBTAINED. IV INSERTED IN THE LEFT FOREARM AND BLOOD OBTAINED FOR CBC AND TYPE AND SCREEN. RECEIVED A NOTIFICATION AT [address] CHIU WAS CANCELING HER CASES TODAY DUE TO FAMILY EMERGENCY. IV DC'D. PATIENT GIVEN A COKE TO DRINK AND DISMISSED. PATIENT TO CALL DR. CHIU'S OFFICE TO RESCHEDULE. PATIENT WAS VERY PLEASANT AND COOPERATIVE.
[2020-09-05 06:35] LABS: BASOPHILS % (AUTO) 1 % (0-10); EOSINOPHILS # (AUTO) 0.4 10^3/uL (0.0-0.3); EOSINOPHILS % (AUTO) 8 % (0-10); HEMATOCRIT 39 % (35-52); HEMOGLOBIN 12.6 g/dL (11.5-16.0); LYMPHOCYTES # (AUTO) 1.5 10^3/uL (1.0-4.0); LYMPHOCYTES % (AUTO) 29 % (12-44); MEAN CORPUSCULAR HEMOGLOBIN 27 pg (25-34); MEAN CORPUSCULAR HGB CONC 32 g/dL (32-36); MEAN CORPUSCULAR VOLUME 84 fL (80-99); MEAN PLATELET VOLUME 10.8 fL (9.0-12.2); MONOCYTES # (AUTO) 0.5 10^3/uL (0.0-1.0); MONOCYTES % (AUTO) 9 % (0-12); NEUTROPHILS # (AUTO) 2.7 10^3/uL (1.8-7.8); NEUTROPHILS % (AUTO) 54 % (42-75); PLATELET COUNT 185 10^3/uL (130-400); WHITE BLOOD COUNT 5.1 10^3/uL (4.3-11.0)
== END ==
LOC: SDC 06:00
PROVIDERS: ATTEND Obstetrics & Gynecology
DX: N92.0 Excessive and frequent menstruation with regular cycle (principal); Z53.8 Procedure and treatment not carried out for other reasons
CPT/HCPCS: 36415; 81000; 84703; 85025; 87081

== ENCOUNTER 2020-09-13 05:54 | Outpatient (RCR) | payer BC ==
[~2020-09-13] VITALS: Ht 167 cm; Wt 70.4 kg
[~2020-09-13 05:54] MED LIST changes: -LACTATED RINGERS 1,000 ML IV PRN; -LIDOCAINE PF 2% 5 ML (XYLOCAINE) VIAL ONE; -MIDAZOLAM 2 MG/2 ML (VERSED) VIAL ONE; -ONDANSETRON 4 MG/2 ML (SDV) Z0FRAN ONE; -ROCURONIUM 10 MG/ML 5 ML SYRINGE IV ONE; -SEVOFLURANE (ULTANE) 15 ML INHAL SOLN ONE; -ceFAZolin INJECTION 1,000 MG in WATER (STERILE) FOR INJECTION 10 ML IV ONE; -fentaNYL INJECTION 100 MCG/2 ML AMP ONE; -metroNIDAZOLE 500MG/100ML IVPB 100 ML IV ONE; -proPOfol 200 MG/20 ML (DIPRIVAN) VIAL IV ONE
== END 2020-09-13 11:36 | disposition home or self-care (01) ==
LOC: PREOP 05:54
PROVIDERS: ATTEND Obstetrics & Gynecology
DX: Z01.812 Encounter for preprocedural laboratory examination (principal); Z20.828 Contact with and (suspected) exposure to other viral communicable diseases

== ENCOUNTER → 2020-09-15 | Outpatient (CLI) | payer BC ==
[~2020-09-15] MED LIST changes: +ACET-93 PO; +DCS100C PO; +OXC5T PO
== END ==
LOC: LAB FS 10:00
PROVIDERS: ATTEND Obstetrics & Gynecology
DX: Z01.812 Encounter for preprocedural laboratory examination (principal); N92.0 Excessive and frequent menstruation with regular cycle; N93.8 Other specified abnormal uterine and vaginal bleeding; Z20.828 Contact with and (suspected) exposure to other viral communicable diseases
CPT/HCPCS: 87635

== ENCOUNTER 2020-09-18 06:01 | Day surgery (SDC) | payer BC ==
[2020-09-18] VITALS (11 sets, daily range): BP systolic 93–109; BP diastolic 59–77
[~2020-09-18] VITALS: Ht 167 cm; Wt 70.4 kg
[~2020-09-18 06:01] MED LIST changes: -ACET-93 PO; -DCS100C PO; -OXC5T PO
[2020-09-18] MEDS ORDERED: metroNIDAZOLE 500MG/100ML IVPB 100 ML IV ONE (06:15)
[2020-09-18] MEDS: LACTATED RINGERS 1,000 ML IV PRN ×3 (06:28→08:56)
[2020-09-18] MEDS ORDERED: SEVOFLURANE (ULTANE) 15 ML INHAL SOLN ONE ×6 (07:02→09:45)
[2020-09-18] MEDS ORDERED: proPOfol 200 MG/20 ML (DIPRIVAN) VIAL IV ONE (07:02)
[2020-09-18] MEDS ORDERED: fentaNYL INJECTION 100 MCG/2 ML AMP ONE (07:02)
[2020-09-18] MEDS ORDERED: MIDAZOLAM 2 MG/2 ML (VERSED) VIAL ONE (07:02)
[2020-09-18] MEDS ORDERED: ONDANSETRON 4 MG/2 ML (SDV) Z0FRAN ONE (07:02)
[2020-09-18] MEDS ORDERED: ROCURONIUM 10 MG/ML 5 ML SYRINGE IV ONE (07:02)
[2020-09-18] MEDS ORDERED: LIDOCAINE/EPI 1%-1:100,000 (XYLOCAINE) 50 ML ONE (07:04)
--- NOTE | 2020-09-18 07:15 | History & Physical-Surgical ---
HPO-Surgical History of Present Illness Chief Complaint: abnormal uterine bleeding history of multiple section desires definitive treatment completed childbearing history of tubal interruption Diagnosis/Surgical Indication: MENORRHAGIA Procedure: RATH, JONA SALPINGECTOMY Date of Surgery: Sep 18, 2020 Weight (Pounds): 182 Weight (Ounces): 0.3 Height (Feet): 5 Height (Inches): 6.00 Allergies and Home Medications Allergies Coded Allergies: No Known Drug Allergies (Unverified , 08/30/20) Home Medications Nortriptyline HCl 25 Mg Capsule, 25 MG PO HS, (Reported) Patient Home Medication List Home Medication List Reviewed: No Past Aynaprv-Fioexy-Eymhvu Hx Patient Social History Number of Children: 5 Number of living children: 5 Alcohol Use: Occasionally Uses Recreational Drug Use: No Smoking Status: Former Smoker Former Smoker, Quit: May 31, 2019 Type Used: Cigarettes 2nd Hand Smoke Exposure: No Recent Foreign Travel: No Contact w/other who traveled: No Recent Hopitalizations: No Immunizations Up To Date Pediatric: Yes Seasonal Allergies Seasonal Allergies: Yes (MILD) Surgeries Yes (CS X5) Section (x5) Respiratory No Cardiovascular No Neurological Yes Headaches /Migraines Reproductive System Hx : 6 Hx Para: 5 Sexually Transmitted Disease: No HIV/AIDS: No Female Reproductive Disorders: Menstrual Problems Genitourinary No Gastrointestinal No Musculoskeletal Yes Chronic Back Pain Endocrine History of Endocrine Disorders: No HEENT History of HEENT Disorders: Yes (GLASSES) Loss of Vision: Denies Hearing Impairment: Denies Cancer No Psychosocial History of Psychiatric Problem: No Integumentary History of Skin or Integumenta: No Blood Transfusions History of Blood Disorders: No Adverse Reaction to a Blood Tr: No (HAS HAD BLOOD WITH NO REACTION) Family Medical History Family Hx: Cardiovascular disease 19 FATHER Completed stroke 19 MOTHER (tia) FHx: multiple sclerosis 19 MOTHER Hypertension 19 FATHER Respiratory disorder 19 FATHER Exam Vital Signs See mortgage accounting clerk Capillary Refill : General Appearance: Alert, Oriented X3, Cooperative Respiratory: Clear to Auscultation, Normal Air Movement Cardiovascular: Regular Rate, Normal S1, Normal S2 Abdominal: Normal Bowel Sounds Assessment/Plan Assessment and Plan 1. dysfunction uterine bleeding - failed conservative treatment; contraindication to IUD/endometrial ablation/OCPs )history of migraine); normal pap/ normal US 2. Adhesional disease/ history of 5 cs/ history of BTL Plan - Robotic assisted Total hysterectomy/Lysis of adhesions and OIP, with bilateral salpingectomy (partial) Risks of bleeding infection, injury to bowel bladder and uterus has been explained. Patient understands risks and benefits. She has signed appropriate consents. She has completed childbearing but understands that once uterus is removed she is unable to bear children. Prophylactic antibiotics and SCDs will be used. Admission Diagnosis Admission Status: Other (outpatient, 23hour) RICHARD CHIU DO Sep 18, 2020 07:15
[2020-09-18] MEDS: ceFAZolin INJECTION 1,000 MG in WATER (STERILE) FOR INJECTION 10 ML IV ONE ×2 (07:16→08:11)
--- NOTE | 2020-09-18 08:08 | Progress Note-Pre Operative ---
Pre-Operative Progress Note H&P Reviewed The H&P was reviewed, patient examined and no changes noted. Date Seen by Provider: Sep 18, 2020 Time Seen by Provider: 07:30 Date H&P Reviewed: Sep 18, 2020 Time H&P Reviewed: 07:40 Pre-Operative Diagnosis: abnromal uterine bleeding RICHARD CHIU DO Sep 18, 2020 08:08
[2020-09-18] MEDS ORDERED: KETOROLAC 30 MG/ML VIAL ONE (09:24)
[2020-09-18] MEDS ORDERED: GLYCOPYRROLATE 0.2 MG/ML (ROBINUL) 2 ML VIAL ONE (09:24)
[2020-09-18] MEDS ORDERED: NEOSTIGMINE 3 MG/3 ML VIAL ONE (09:24)
[2020-09-18] MEDS ORDERED: LIDOCAINE PF 2% 5 ML (XYLOCAINE) VIAL ONE (09:25)
--- NOTE | 2020-09-18 09:54 | Operative Report ---
Operative Report Date of Procedure/Surgery Sep 18, 2020 Surgeon (s) RICHARD CHIU DO Quality Assurance Auditor (s): NA Post-Operative Diagnosis abnormal uterine bleeding endometriosis s/p JONA salpingectomy Procedure Performed Timothy fulgeration of endometriosis Description of Procedure Anesthesia Type: General Estimated blood loss (mL): minimal Specimen(s) collected/removed uterus Description of the Procedure After informed consent was obtained, patient was taken into the operating room where general anesthetic was found to be adequate. She was prepped and draped in the usual sterile fashion in the dorsal lithotomy position. A Hylton catheter was placed. A speculum was placed in the vagina. The cervix was visualized and the anterior lip was grasped with a sharp toothed tenaculum. The uterus was sounded and depth was approximately 7centimeters. I placed the Franca device (6.5 cm) and a 3.0 cm collar was advanced over the cervix. The uterus was noted to be severely retroverted. I inserted the Franca without difficulty, inflating the balloon and securing it around the fornix of the cervix. The collar was then secured with sutures at 12 o'clock. Attention was then turned to the patient's abdomen. A supraumbilical incision was made about 8 mm. A Veress needle was inserted and I confirmed intraabdominal placement with a drop in pressure and the saline drop test. The opening pressure was 4 mmHg. I then insufflated the abdomen to a maximum of 15 mmHg with warmed CO2 gas. I placed an additional 8 mm trocar in the left abdomen lateral to the umbilicus approximately 15 cm. It was determined that this could be completed robotically. The second robotic port was placed about 12 cm lateral to the right placement. This was an 8 mm trocar. These were placed under direct visualization of the laparoscope. 1% Lidocaine with epinephrine was injected prior to placement of all trocars. When all placements were confirmed, the patient was placed in steep Trendelenburg allowing adequate visualization and the robot was brought in for docking. The docking was accomplished without difficulty. I then took over the command of the robot utilizing the vessel sealer and monopolar lizet. There was evidence of bilateral tubal sterilization with salpingectomy. There was a 3 mm spot of endometriosis (chocolate cyst) at the base of the left ovary. There were three additional spots of endometriosis along the left US ligament. I fulgerated the spot on the peritoneum near the left ovary and then resected the areas on the left uterosacral ligament. I was able to visualize the round ligaments bilaterally and grasped them and cauterized with bipolar cautery and then cut with my lizet. Then, I grasped the uterine ovarian ligaments and transected bilaterally using the vessel sealer. I then moved my dissection to the posterior leaves of the broad ligament. I dissected the posterior leaves of the broad ligament off the uterine arteries skeletonizing them bilaterally. I then took a second clamp with the vessel sealer and with the lizet, transected the vessels away from the lateral aspect to the cervical stroma. These vessels were very dilated and tortuous. I dissected the anterior peritoneum off the lower uterine segment. Due to the previous history of section x 5, she did have adhesions of the vesicouterine peritoneum and the bladder was advanced over the lower uterine segment. Thus, I continually pushed the bladder back and I took excessively great care and I was eventually able to dissect the vesicouterine peritoneum off the lower uterine segment. There was no evidence of bladder injury. I then dissected in a V fashion towards the midline between the uterosacral ligaments. This allowed me to skeletonize the uterine vessels bilaterally. The balloon on the FRANCA was insufflated. This allowed me to see the FRANCA circumferentially. I then performed a colpotomy posteriorly and then amputate with cervix away from the vaginal fornix. I then continued the colpotomy circumferentially. Once this was performed, the treasury assistant removed the uterus, tubes and ovaries through the vagina. She then packed the vagina with a laparotomy sponge to maintain the pneumoperitoneum. . I then began closure of the vaginal cuff. I closed the apices of the vaginal cuff with 2-0 Vicryl V lock sutures with a colposuspension through the uterosacral ligaments. This suspended the apices of the vaginal cuff. I extended this to the midline from both sides and overlapped the V lock sutures in the midline. Excellent closure is noted and hemostasis is achieved. All the needles were removed from the patient's abdomen. The pelvis was irrigated. There was no active bleeding noted. Now, the robotic instruments were removed and the robot was undocked. Bilateral ureters were seen the entire time during the surgery and were peristalsing. There was no excessive bleeding noted. The trocars were removed under direct visualization. The laparoscopic sites were visualized and found to be hemostatic. The trocar sites were injected with 1% lidocaine with epinephrine. The skin incisions were closed with 4-0 Monocryl in a subcuticular fashion and then with Dermabond. Op sites were placed over the incision sites. The instruments were removed from the vagina and I noted there were no abrasions The patient was awakened and taken to recovery in a stable condition. Sponge, lap, needle and instrument counts were correct times two. Findings of the Procedure slightly enlarged, boggy uterus, severely retroverted evidence of bilateral salpingectomy endometriosis in culdesac (stage I, on left US ligament), and at base of left ovary Allergies and Home Medications Allergies Coded Allergies: No Known Drug Allergies (Unverified , 08/30/20) Home Medications Nortriptyline HCl 25 Mg Capsule, 25 MG PO HS, (Reported) Patient Home Medication List Home Medication List Reviewed: Yes RICHARD CHIU DO Sep 18, 2020 09:54
[2020-09-18] MEDS ORDERED: morphine INJ 4 MG/ML 1 ML (VIAL/SYRINGE) IVP PRN (10:00)
[2020-09-18] MEDS: LACTATED RINGERS 1,000 ML IV SCH ×2 (10:14→15:57)
[2020-09-18] MEDS ORDERED: DCS100C PO (10:17)
[2020-09-18] MEDS ORDERED: IBUP-844 PO (10:17)
[2020-09-18] MEDS ORDERED: ACET-93 PO (10:17)
[2020-09-18] MEDS ORDERED: OXC5T PO (10:17)
--- NOTE | 2020-09-18 10:19 | Discharge Inst-Women's Service ---
Discharge Inst-Women's Serv Depart Medication/Instructions New, Converted or Re-Newed RX: Transmitted to Pharmacy Final Diagnosis abnormal uterine bleeding endometriosis Problems Reviewed?: Yes Consults/Follow Up Additional Follow Up: Yes (1 week for incision check and 10-12 weeks with Ray) Activity Activity: Activity as Tolerated Driving Instructions: No Driving for 1 Week NO SMOKING: NO SMOKING Nothing Inside Vagina: No Douching, No [place] (for 10-12 weeks (until cleared by doctor)), No Tampons Diet Discharge Diet: No Restrictions Symptoms to Report to : Swelling Increased, Bleeding Excessive, Pain I ncreased, Fever Over 101 Degrees F, Vaginal Bleeding Increase, Lightheadedness, Vaginal Discharge Foul For Any Problems or Questions: Contact Your Physician Skin/Wound Care Infection Signs and Symptoms: Increased Redness, Foul Odor of Wound, Increased Drainage, Skin Itchy or Has a Rash, Increased Swelling, Temperature Above 101 F Operative Area Clean and Dry: You May Remove Bandage (ok to removed after 3 days, unless soiled or wet, and then remove and replace ) Stitches/Anton/Dermabond: Dermabond Bathing Instructions: RICHARD Giles DO Sep 18, 2020 10:19
--- NOTE | 2020-09-18 10:37 | Anesthesia-General Post-Op ---
General Patient Condition Mental Status/LOC: Same as Preop Cardiovascular: Satisfactory Nausea/Vomiting: Absent Respiratory: Satisfactory Pain: Controlled Complications: Absent Post Op Complications Complications None Follow Up Care/Instructions Patient Instructions None needed. Anesthesia/Patient Condition Patient Condition Patient is doing well, no complaints, stable vital signs, no apparent adverse anesthesia problems. No complications reported per nursing. PEARL ROMO CRNA Sep 18, 2020 10:37
[2020-09-18] MEDS ORDERED: morphine INJ 10 MG/ML 1ML (SYR OR VIAL) ONE (10:38)
[2020-09-18] MEDS ORDERED: HYDROmorphone 2 MG/ML VIAL (DILAUDID) IV ONE (10:45)
[2020-09-18] MEDS ORDERED: morphine INJ 10 MG/ML 1ML (SYR OR VIAL) IVP ONE (10:45)
--- NOTE | 2020-09-18 10:55 | NUR ---
NAEEM MOODY admitted to room 3306-1, with an admitting diagnosis of postop robotic hysterectomy, on 09-18-20 from recovery via cart, accompanied by staff. NAEEM MOODY introduced to surroundings, call light, bed controls, phone, TV, temperature control, lights, meal times, smoking policy, visitor policy, side rail policy, bathrooms and showers. Patient Rights given to patient in the handbook. NAEEM MOODY verbalizes understanding that [facility] is not responsible for the loss or damage to any personal effects or valuables that are kept in the patients posession during their hospitalization. The following Patient Care Plans were discussed with the patient: Discharge Planning, pain management, postop care plan. NAEEM MOODY verbalizes understanding of Interdisciplinary Patient Education. Patient and/or family were informed about the Rapid Response Team and its purpose.
[2020-09-18] MEDS: ONDANSETRON 4 MG/2 ML (SDV) Z0FRAN IVP PRN ×2 (11:07→12:15)
[2020-09-18] MEDS: KETOROLAC 30 MG/ML VIAL IV SCH ×2 (15:57→21:16)
--- NOTE | 2020-09-18 16:30 | NUR ---
VSS. FRESHENED ICE PACK AND WATER. RATES PAIN 2/10. PT WANTING BALDWIN OUT.
--- NOTE | 2020-09-18 16:45 | NUR ---
BALDWIN D/C'ED WITH 325 CC URINE IN BAG. URINE CLEAR IN TUBING. V-PAD DRY WITHOUT SPOTTING.
[2020-09-18] MEDS: DOCUSATE SODIUM 100 MG (COLACE) CAP PO SCH (19:58)
[2020-09-18] MEDS: ACETAMINOPHEN 500 MG TAB (TYLENOL) PO SCH (19:58)
[2020-09-18] MEDS ORDERED: NORTRIPTYLINE 25 MG (PAMELOR) CAP PO SCH (21:00)
[2020-09-19] MEDS ORDERED: SIMETHICONE 80 MG (MYLICON) CHEW ONE (03:31)
[2020-09-19] MEDS: KETOROLAC 30 MG/ML VIAL IV SCH (03:36)
[2020-09-19] MEDS: ACETAMINOPHEN 500 MG TAB (TYLENOL) PO SCH (03:37)
[2020-09-19 03:42] VITALS: BP 90/54
[2020-09-19] MEDS ORDERED: SIMETHICONE 80 MG (MYLICON) CHEW PO ONE (03:45)
--- NOTE | 2020-09-19 09:30 | NUR ---
Introduced self to pt, poc reviewed, vitals taken, shift physical exam completed, scheduled meds given.
[2020-09-19] MEDS: DOCUSATE SODIUM 100 MG (COLACE) CAP PO SCH (09:57)
[2020-09-19 09:58] VITALS: BP 107/56
[2020-09-19] MEDS ORDERED: IBUPROFEN 600 MG (MOTRIN) TAB PO SCH (10:00)
--- NOTE | 2020-09-19 12:05 | NUR ---
Discharge instructions given to pt. Pt verbalizes understanding. Appointment cards and phs given to pt. Pt signs that discharge instructions were given to pt. Pt waiting for ride prior to dismissal.
--- NOTE | 2020-09-19 13:10 | NUR ---
Pt discharged from unit in stable condition ,via wheelchair, accompanied by this rn and belongings.
== END 2020-09-19 13:10 ==
LOC: SDC 06:01 → WS 10:55 → SDC 09-19 13:10
PROVIDERS: ATTEND Obstetrics & Gynecology
DX: N80.0 Endometriosis of uterus (principal); N93.9 Abnormal uterine and vaginal bleeding, unspecified; N92.0 Excessive and frequent menstruation with regular cycle; G43.909 Migraine, unspecified, not intractable, without status migrainosus; Z79.899 Other long term (current) drug therapy
CPT/HCPCS: 36415; 84703; 86850; 86900; 86901; 87081; 88307

== ENCOUNTER → 2020-09-25 | Outpatient (CLI) | payer BC ==
[~2020-09-25] MED LIST changes: +ACET-93 PO; +DCS100C PO; +OXC5T PO
--- NOTE | 2020-09-25 16:06 | Diagnostic Imaging Report ---
PROCEDURE: CT maxillofacial without contrast. TECHNIQUE: Multiple contiguous axial images were obtained through the facial bones without the use of intravenous contrast. Auto Exposure Controls were utilized during the CT exam to meet ALARA standards for radiation dose reduction. INDICATION: Left facial swelling. FINDINGS: Globes are intact without evidence of abnormal intraorbital density to indicate inflammation or hematoma. There is no evidence of significant hematoma or fluid collection elsewhere in the face. Parotid and submandibular salivary glands are unremarkable. There are diffuse mildly prominent cervical lymph nodes which are generally symmetric, bilaterally. Visualized paranasal sinuses are clear as are mastoid air cells. There is rightward deviation of the nasal septum. Temporomandibular joints are intact. IMPRESSION: No acute abnormality. Dictated by: Dictated on workstation # [id number]
== END ==
LOC: RAD FS 15:27
PROVIDERS: ATTEND Family Medicine
DX: R22.0 Localized swelling, mass and lump, head (principal)
CPT/HCPCS: 70486

== ENCOUNTER → 2021-01-03 | Outpatient (CLI) | payer BC ==
[~2021-01-03] MED LIST changes: +GADOBUTROL 7.5 MMOL/7.5 ML (GADAVIST) VIAL IV ONE
--- NOTE | 2021-01-03 11:28 | Diagnostic Imaging Report ---
PROCEDURE: MR imaging of the brain with and without contrast. TECHNIQUE: Multiplanar, multisequence MR imaging of the brain was performed with and without contrast. INDICATION: Left-sided facial swelling and headaches. COMPARISON: CT maxillofacial without contrast 09/25/2020. FINDINGS: There is abnormal confluent thickening, edema and enhancement involving the superficial layers of the temporalis muscle on the left. There is no discrete mass or fluid collection identified. The underlying calvarium is normal in signal. Mild nonspecific T2 hyperintensities in the subcortical and supratentorial white matter are nonspecific but greater than expected for age. No abnormal intracranial enhancement. No restricted water diffusion or hemosiderin deposition. Normal morphology of the major midline structures, sella, posterior fossa and cerebellar pontine angle. No hydrocephalus or extra-axial fluid collections. Normal intracranial flow voids. The orbits are unremarkable. Paranasal sinuses and mastoids are clear. Normal bone marrow signal. IMPRESSION: 1. Confluent abnormal thickening, edema and enhancement involving the superficial layers of the left temporalis muscle. No discrete mass or fluid collection is identified. Although not diagnostic, findings raise the suspicion of temporal arteritis. Trauma could have a similar appearance but is considered unlikely giving the duration of symptoms. The left temporal artery flow void is well demonstrated. 2. Mild nonspecific T2 hyperintensities in the subcortical supratentorial white matter are nonspecific but greater than expected for age. There is no abnormal intracranial enhancement at this time. There is a broad differential diagnosis including but not limited to inflammatory conditions including demyelinating disease, history of vasculitis and chronic small vessel ischemic change. Dictated by: Dictated on workstation # [id number]
--- NOTE | 2021-01-03 11:35 | Diagnostic Imaging Report ---
PROCEDURE: MR angiography of the brain without the use of contrast. TECHNIQUE: 3D [id number] non contrast enhanced MR angiography of the head was performed. A source data was reformatted into rotating MIP projections. INDICATION: Left-sided facial swelling since Thanksgiving. Headaches. COMPARISON: MRI brain without and with IV contrast from 01/03/2021. FINDINGS: Noncontrast [id number] intracranial MRA demonstrates widely patent basilar, intracranial vertebral, internal carotid, anterior cerebral, middle cerebral, and posterior cerebral arteries. No evidence of aneurysm or dissection. The anterior and right posterior communicating arteries are widely patent. Absent left posterior communicating artery. The bilateral temporal arteries are patent and symmetric in caliber bilaterally within the [id number]-by-yqec. IMPRESSION: Normal intracranial MRA. Dictated by: Dictated on workstation # [id number]
== END ==
LOC: RAD 10:15
PROVIDERS: ATTEND Otolaryngology Otolaryngology/Facial Plastic Surgery
DX: R51.9 Headache, unspecified (principal); R22.0 Localized swelling, mass and lump, head; Z86.69 Personal history of other diseases of the nervous system and sense organs
CPT/HCPCS: 70544; 70553

== ENCOUNTER → 2021-02-21 | Outpatient (CLI) | payer BC ==
[~2021-02-21] MED LIST changes: -GADOBUTROL 7.5 MMOL/7.5 ML (GADAVIST) VIAL IV ONE
[2021-02-21 14:44] LABS: CREATINE KINASE 143 U/L (29-168)
== END ==
LOC: LAB FS 02-20 14:57
PROVIDERS: ATTEND Internal Medicine
DX: M60.9 Myositis, unspecified (principal)
CPT/HCPCS: 36415; 82085; 82164; 82550; 85652; 86141; 86235; 86618

== ENCOUNTER → 2021-07-09 | Outpatient (CLI) | payer BC ==
[~2021-07-09] MED LIST changes: -DCS100C PO; +DOCU-239 PO; +GADOBUTROL 15 MMOL/15 ML (GADAVIST) VIAL IV ONE
--- NOTE | 2021-07-09 19:32 | Diagnostic Imaging Report ---
PROCEDURE: MR imaging of the brain with and without contrast. TECHNIQUE: Multiplanar, multisequence MR imaging of the brain was performed with and without contrast. INDICATION: Migraine headaches. COMPARISON: Comparison is made with prior MRI of the brain from 01/03/2021. FINDINGS: Ventricular size and sulcal pattern are stable. Subcortical white matter signal foci, best seen on FLAIR sequences appear similar to prior exam. No diffusion restriction is identified. The normal expected flow-voids within the carotid siphons are seen. No acute intra-axial or extra-axial hemorrhage is detected. No abnormal enhancement following contrast administration is seen. Corpus callosum is unremarkable. The sella and parasellar structures are unremarkable. IMPRESSION: Stable subcortical white matter signal foci when compared with exam from 01/03/2021. No new abnormality is seen. No abnormal enhancement is identified. Dictated by: Dictated on workstation # [id number]
== END ==
LOC: RAD 06-29 16:15
PROVIDERS: ATTEND Internal Medicine
DX: G43.909 Migraine, unspecified, not intractable, without status migrainosus (principal); M31.6 Other giant cell arteritis
CPT/HCPCS: 70553

== ENCOUNTER → 2021-12-07 | Outpatient (CLI) | payer BC ==
[~2021-12-07] MED LIST changes: -GADOBUTROL 15 MMOL/15 ML (GADAVIST) VIAL IV ONE
[2021-12-07 11:43] LABS: BASOPHILS % (AUTO) 0 % (0-10); EOSINOPHILS # (AUTO) 0.1 10^3/uL (0.0-0.3); EOSINOPHILS % (AUTO) 1 % (0-10); HEMATOCRIT 39 % (35-52); LYMPHOCYTES # (AUTO) 1.3 10^3/uL (1.0-4.0); LYMPHOCYTES % (AUTO) 19 % (12-44); MEAN CORPUSCULAR HEMOGLOBIN 28 pg (25-34); MEAN CORPUSCULAR HGB CONC 34 g/dL (32-36); MEAN CORPUSCULAR VOLUME 84 fL (80-99); MEAN PLATELET VOLUME 10.5 fL (9.0-12.2); MONOCYTES # (AUTO) 0.5 10^3/uL (0.0-1.0); MONOCYTES % (AUTO) 7 % (0-12); NEUTROPHILS # (AUTO) 5.1 10^3/uL (1.8-7.8); NEUTROPHILS % (AUTO) 73 % (42-75); PLATELET COUNT 174 10^3/uL (130-400)
[2021-12-07 11:45] LABS: BILIRUBIN,URINE NEGATIVE (NEGATIVE); CLARITY,URINE CLEAR; COLOR,URINE YELLOW; GLUCOSE, URINE (UA) NEGATIVE (NEGATIVE); KETONES,URINE NEGATIVE (NEGATIVE); LEUKOCYTE ESTERASE ,URINE NEGATIVE (NEGATIVE); NITRITE,URINE NEGATIVE (NEGATIVE); PROTEIN,URINE NEGATIVE (NEGATIVE)
[2021-12-07 12:29] LABS: BACTERIA,URINE NEGATIVE /HPF
[2021-12-07 13:12] LABS: CREATININE SERUM 0.96 MG/DL (0.60-1.30); POTASSIUM 3.6 MMOL/L (3.6-5.0)
[2021-12-07 13:13] LABS: ALBUMIN 4.2 GM/DL (3.2-4.5); BILIRUBIN,TOTAL 0.4 MG/DL (0.1-1.0); CALCIUM 9.3 MG/DL (8.5-10.1); MAGNESIUM 1.8 MG/DL (1.6-2.4); TOTAL PROTEIN 7.1 GM/DL (6.4-8.2)
== END ==
LOC: LAB FS 11:21
PROVIDERS: ATTEND Family Medicine
DX: G43.909 Migraine, unspecified, not intractable, without status migrainosus (principal); R56.9 Unspecified convulsions
CPT/HCPCS: 36415; 80053; 81000; 83735; 85025

== ENCOUNTER → 2022-01-24 | Outpatient (CLI) | payer OTHER ==
[2022-01-24 08:18] LABS: BASOPHILS % (AUTO) 1 % (0-10); EOSINOPHILS # (AUTO) 0.1 10^3/uL (0.0-0.3); EOSINOPHILS % (AUTO) 2 % (0-10); HEMATOCRIT 40 % (35-52); HEMOGLOBIN 13.1 g/dL (11.5-16.0); LYMPHOCYTES # (AUTO) 1.5 10^3/uL (1.0-4.0); LYMPHOCYTES % (AUTO) 34 % (12-44); MEAN CORPUSCULAR HEMOGLOBIN 28 pg (25-34); MEAN CORPUSCULAR HGB CONC 33 g/dL (32-36); MEAN CORPUSCULAR VOLUME 84 fL (80-99); MEAN PLATELET VOLUME 10.2 fL (9.0-12.2); MONOCYTES # (AUTO) 0.4 10^3/uL (0.0-1.0); MONOCYTES % (AUTO) 9 % (0-12); NEUTROPHILS # (AUTO) 2.5 10^3/uL (1.8-7.8); NEUTROPHILS % (AUTO) 55 % (42-75); PLATELET COUNT 168 10^3/uL (130-400); WHITE BLOOD COUNT 4.5 10^3/uL (4.3-11.0)
[2022-01-24 08:51] LABS: CREATININE SERUM 1.04 MG/DL (0.60-1.30); POTASSIUM 3.9 MMOL/L (3.6-5.0)
[2022-01-24 08:52] LABS: ALBUMIN 4.2 GM/DL (3.2-4.5); BAND NEUTROPHILS 1 %; BASOPHILS % (MANUAL) 1 %; BILIRUBIN,TOTAL 0.4 MG/DL (0.1-1.0); CALCIUM 9.5 MG/DL (8.5-10.1); EOSINOPHILS % (MANUAL) 0 %; LYMPHOCYTES % (MANUAL) 30 %; MONOCYTES % (MANUAL) 5 %; NEUTROPHILS % (MANUAL) 63 %; TOTAL PROTEIN 6.9 GM/DL (6.4-8.2)
== END ==
LOC: LAB FS 07:57
PROVIDERS: ATTEND Family Medicine
DX: Z00.01 Encounter for general adult medical examination with abnormal findings (principal); G40.909 Epilepsy, unspecified, not intractable, without status epilepticus
CPT/HCPCS: 36415; 80053; 80061; 85007; 85027

== ENCOUNTER 2022-02-06 00:15 | Emergency (ER) | payer OTHER ==
--- NOTE | 2022-02-06 00:28 | ED General ---
General Stated Complaint: SEIZURE ACTIVITY History of Present Illness Date Seen by Provider: February 06, 2022 Time Seen by Provider: 00:28 Initial Comments 31-year-old female brought in with concerns for "seizure-like activity" patient reports that she was laying in bed when she got really hot And sweaty and anxious feeling. She reports since she started shaking really bad and had difficulty speaking. Patient reports that she knew what was happening throughout the whole "seizure-like activity" she denies any tongue biting, loss of bowel or bladder. Patient has been seen by her neurologist and has had a negative MRI, negative EEG. She reports that they are attempting to get her a home EEG for a longer period of monitoring. She is currently on Keppra 1500 mg twice daily and took her Keppra evening dose just prior to arrival. She denies any recent illnesses. Allergies and Home Medications Allergies Coded Allergies: No Known Drug Allergies (Unverified , 08/30/20) Patient Home Medication List Home Medication List Reviewed: Yes Acetaminophen (Acetaminophen) 500 Mg Tablet, 1,000 MG PO Q8HR Prescribed by: RICHARD CHIU on 09/18/20 1017 Docusate Sodium (Dok) 100 Mg Capsule, 100 MG PO BID Prescribed by: RICHARD CHIU on 09/18/20 1017 Ibuprofen (Ibu) 600 Mg Tablet, 600 MG PO Q6HR Prescribed by: RICHARD CHIU on 09/18/20 1017 Nortriptyline HCl (Nortriptyline HCl) 25 Mg Capsule, 25 MG PO HS, (Reported) Entered as Reported by: LIDYA BAI on 08/30/20 1330 Oxycodone Hcl (Oxyir Tablet) 5 Mg Tab, 5 MG PO Q4HR Prescribed by: RICHARD CHIU on 09/18/20 1017 Review of Systems Review of Systems Constitutional: No chills, No fever EENTM: no symptoms reported Respiratory: no symptoms reported Cardiovascular: no symptoms reported Gastrointestinal: no symptoms reported Genitourinary: no symptoms reported Musculoskeletal: no symptoms reported Skin: no symptoms reported Psychiatric/Neurological: See HPI Hematologic/Lymphatic: No Symptoms Reported Past Mkxxppc-Yjitui-Lbmeun Hx Immunizations Up To Date PED Vaccines UTD: No Seasonal Allergies Seasonal Allergies: Yes (MILD) Past Medical History Surgeries: Yes (CS X5) Section Respiratory: No Currently Using CPAP: No Currently Using BIPAP: No Cardiac: No Neurological: Yes Headaches /Migraines Female Reproductive Disorders: Menstrual Problems Sexually Transmitted Disease: No HIV/AIDS: No Genitourinary: No Gastrointestinal: No Musculoskeletal: Yes Chronic Back Pain Endocrine: No HEENT: Yes (GLASSES) Loss of Vision: Denies Hearing Impairment: Denies Cancer: No Psychosocial: No Integumentary: No Blood Disorders: No Adverse Reaction/Blood Tranf: No (HAS HAD BLOOD WITH NO REACTION) Family Medical History Cardiovascular disease 19 FATHER Completed stroke 19 MOTHER (tia) FHx: multiple sclerosis 19 MOTHER Hypertension 19 FATHER Respiratory disorder 19 FATHER Physical Exam Vital Signs Vital Signs - First Documented 02/06/22 00:24 Temp 36.8 Pulse 103 Resp 18 B/P (MAP) 124/75 (91) Pulse Ox 100 O2 Delivery Room Air Capillary Refill : Height, Weight, BMI Height: 5'6.00" Weight: 182lbs. 0.3oz. 82.450345ze; 25.24 BMI Method: General Appearance: No Apparent Distress, WD/WN HEENT: PERRL/EOMI Neck: Full Range of Motion, Normal Inspection Respiratory: Lungs Clear, Normal Breath Sounds Cardiovascular: Regular Rate, Rhythm, No Edema Gastrointestinal: Non Tender, Soft Extremity: Normal Capillary Refill, Normal Inspection, Normal Range of Motion, Non Tender Neurologic/Psychiatric: Alert, Oriented x3, No Motor/Sensory Deficits, Normal Mood/Affect, deliver driver II-XII Norm as Tested Skin: Normal Color, Warm/Dry Progress/Results/Core Measures Suspected Sepsis SIRS Temperature: Pulse: Respiratory Rate: Laboratory Tests 02/06/22 00:30: White Blood Count 6.8 Blood Pressure / Mean: Laboratory Tests 02/06/22 00:30: Creatinine 1.00, Platelet Count 163, Total Bilirubin 0.3 Results/Orders Lab Results Laboratory Tests Test 02/06/22 00:30 02/06/22 01:05 Range/Units White Blood Count 6.8 4.3-11.0 10^3/uL Red Blood Count 4.42 3.80-5.11 10^6/uL Hemoglobin 12.3 11.5-16.0 g/dL Hematocrit 36 35-52 % Mean Corpuscular Volume 81 80-99 fL Mean Corpuscular Hemoglobin 28 25-34 pg Mean Corpuscular Hemoglobin Concent 34 32-36 g/dL Red Cell Distribution Width 13.0 10.0-14.5 % Platelet Count 163 130-400 10^3/uL Mean Platelet Volume 10.7 9.0-12.2 fL Immature Granulocyte % (Auto) 0 % Neutrophils (%) (Auto) 61 42-75 % Lymphocytes (%) (Auto) 29 12-44 % Monocytes (%) (Auto) 9 0-12 % Eosinophils (%) (Auto) 1 0-10 % Basophils (%) (Auto) 0 0-10 % Neutrophils # (Auto) 4.1 1.8-7.8 10^3/uL Lymphocytes # (Auto) 1.9 1.0-4.0 10^3/uL Monocytes # (Auto) 0.6 0.0-1.0 10^3/uL Eosinophils # (Auto) 0.1 0.0-0.3 10^3/uL Basophils # (Auto) 0.0 0.0-0.1 10^3/uL Immature Granulocyte # (Auto) 0.0 0.0-0.1 10^3/uL Sodium Level 140 135-145 MMOL/L Potassium Level 3.6 3.6-5.0 MMOL/L Chloride Level 105 98-107 MMOL/L Carbon Dioxide Level 25 21-32 MMOL/L Anion Gap 10 5-14 MMOL/L Blood Urea Nitrogen 15 7-18 MG/DL Creatinine 1.00 0.60-1.30 MG/DL Estimat Glomerular Filtration Rate 78 BUN/Creatinine Ratio 15 Glucose Level 110 H 70-105 MG/DL Calcium Level 9.2 8.5-10.1 MG/DL Corrected Calcium 9.1 8.5-10.1 MG/DL Total Bilirubin 0.3 0.1-1.0 MG/DL Aspartate Amino Transf (AST/SGOT) 17 5-34 U/L Alanine Aminotransferase (ALT/SGPT) 20 0-55 U/L Alkaline Phosphatase 57 40-136 U/L Total Protein 6.8 6.4-8.2 GM/DL Albumin 4.1 3.2-4.5 GM/DL Serum Test, Qualitative NEGATIVE NEGATIVE Urine Color YELLOW Urine Clarity CLEAR Urine pH 8.5 5-9 Urine Specific [place] 1.015 L 1.016-1.022 Urine Protein NEGATIVE NEGATIVE Urine Glucose (UA) NEGATIVE NEGATIVE Urine Ketones NEGATIVE NEGATIVE Urine Nitrite NEGATIVE NEGATIVE Urine Bilirubin NEGATIVE NEGATIVE Urine Urobilinogen 1.0 < = 1.0 MG/DL Urine Leukocyte Esterase TRACE H NEGATIVE Urine RBC (Auto) NEGATIVE NEGATIVE Urine RBC NONE /HPF Urine WBC 5-10 H /HPF Urine Squamous Epithelial Cells 2-5 /HPF Urine Crystals NONE /LPF Urine Bacteria TRACE /HPF Urine Casts NONE /LPF Urine Mucus MODERATE H /LPF Urine Culture Indicated YES Urine Opiates Screen NEGATIVE NEGATIVE Urine Oxycodone Screen NEGATIVE NEGATIVE Urine Methadone Screen NEGATIVE NEGATIVE Urine Propoxyphene Screen NEGATIVE NEGATIVE Urine Barbiturates Screen NEGATIVE NEGATIVE Ur Tricyclic Antidepressants Screen POSITIVE H NEGATIVE Urine Phencyclidine Screen NEGATIVE NEGATIVE Urine Amphetamines Screen NEGATIVE NEGATIVE Urine Methamphetamines Screen NEGATIVE NEGATIVE Urine Benzodiazepines Screen NEGATIVE NEGATIVE Urine Cocaine Screen NEGATIVE NEGATIVE Urine Cannabinoids Screen NEGATIVE NEGATIVE My Orders Orders - BASSAM WILD DO Cbc With Automated Diff (02/06/22 00:33) Comprehensive Metabolic Panel (02/06/22 00:33) Drug Screen Stat (Urine) (02/06/22 00:33) Hcg,Qualitative Serum (02/06/22 00:33) Ua Culture If Indicated (02/06/22 00:33) Ed Iv/Invasive Line Start (02/06/22 00:36) Urine Culture (02/06/22 01:05) Vital Signs/I&O 02/06/22 00:24 Temp 36.8 Pulse 103 Resp 18 B/P (MAP) 124/75 (91) Pulse Ox 100 O2 Delivery Room Air Capillary Refill : Progress Note : Progress Note Patient with no further seizure-like activity while in the ER. I suspect that likely a pseudoseizure versus anxiety attack. I did recommend she calls her neurologist first thing in the morning for further outpatient evaluation and recommendations. Patient stable and discharged home Departure Impression Primary Impression: Seizure-like activity Disposition: HOME, SELF-CARE Condition: Stable Departure-Patient Inst. Referrals: TESSY TORRES MD (PCP/Family) Primary Care Physician Patient Instructions: Seizures, Adult ED Add. Discharge Instructions: Please call your neurologist in the morning for further outpatient recommendations and outpatient evaluation BASSAM WILD DO February 06, 2022 00:28
[2022-02-06 00:39] LABS: BASOPHILS % (AUTO) 0 % (0-10); EOSINOPHILS # (AUTO) 0.1 10^3/uL (0.0-0.3); EOSINOPHILS % (AUTO) 1 % (0-10); HEMATOCRIT 36 % (35-52); HEMOGLOBIN 12.3 g/dL (11.5-16.0); LYMPHOCYTES # (AUTO) 1.9 10^3/uL (1.0-4.0); LYMPHOCYTES % (AUTO) 29 % (12-44); MEAN CORPUSCULAR HEMOGLOBIN 28 pg (25-34); MEAN CORPUSCULAR HGB CONC 34 g/dL (32-36); MEAN CORPUSCULAR VOLUME 81 fL (80-99); MEAN PLATELET VOLUME 10.7 fL (9.0-12.2); MONOCYTES # (AUTO) 0.6 10^3/uL (0.0-1.0); MONOCYTES % (AUTO) 9 % (0-12); NEUTROPHILS # (AUTO) 4.1 10^3/uL (1.8-7.8); NEUTROPHILS % (AUTO) 61 % (42-75); PLATELET COUNT 163 10^3/uL (130-400); WHITE BLOOD COUNT 6.8 10^3/uL (4.3-11.0)
[2022-02-06 00:58] LABS: POTASSIUM 3.6 MMOL/L (3.6-5.0)
[2022-02-06 00:59] LABS: ALBUMIN 4.1 GM/DL (3.2-4.5); BILIRUBIN,TOTAL 0.3 MG/DL (0.1-1.0); CALCIUM 9.2 MG/DL (8.5-10.1); TOTAL PROTEIN 6.8 GM/DL (6.4-8.2)
[2022-02-06 01:15] LABS: BILIRUBIN,URINE NEGATIVE (NEGATIVE); CLARITY,URINE CLEAR; COLOR,URINE YELLOW; GLUCOSE, URINE (UA) NEGATIVE (NEGATIVE); KETONES,URINE NEGATIVE (NEGATIVE); LEUKOCYTE ESTERASE ,URINE TRACE (NEGATIVE); NITRITE,URINE NEGATIVE (NEGATIVE); PH,URINE 8.5 (5-9); PROTEIN,URINE NEGATIVE (NEGATIVE)
[2022-02-06 01:25] LABS: BACTERIA,URINE TRACE /HPF
[2022-02-06 01:26] LABS: AMPHETAMINE SCREEN, URINE NEGATIVE (NEGATIVE); BARBITURATE SCREEN URINE NEGATIVE (NEGATIVE); BENZODIAZEPINES SCREEN URINE NEGATIVE (NEGATIVE); CANNABINOID SCREEN, URINE NEGATIVE (NEGATIVE); COCAINE SCREEN URINE NEGATIVE (NEGATIVE); METHADONE STAT NEGATIVE (NEGATIVE); OPIATE SCREEN URINE NEGATIVE (NEGATIVE); OXYCODONE STAT NEGATIVE (NEGATIVE); PROPOXYPHENE STAT NEGATIVE (NEGATIVE); TRICYCLIC ANTIDEPRESSANTS SCRE POSITIVE (NEGATIVE)
[2022-02-06 01:35] VITALS: BP 109/75
== END 2022-02-06 01:39 | disposition home or self-care (01) ==
LOC: EDUNIT# 00:15 → ER FS 00:21
DX: R25.9 Unspecified abnormal involuntary movements (principal); R47.9 Unspecified speech disturbances
CPT/HCPCS: 36415; 80053; 80306; 81000; 84703; 85025; 87088

== ENCOUNTER → 2022-05-16 | Outpatient (CLI) | payer OTHER ==
[2022-05-16 10:09] LABS: BILIRUBIN,URINE NEGATIVE (NEGATIVE); CLARITY,URINE SL CLOUDY; COLOR,URINE YELLOW; GLUCOSE, URINE (UA) NEGATIVE (NEGATIVE); KETONES,URINE NEGATIVE (NEGATIVE); LEUKOCYTE ESTERASE ,URINE NEGATIVE (NEGATIVE); NITRITE,URINE NEGATIVE (NEGATIVE); PH,URINE 6.5 (5-9); PROTEIN,URINE NEGATIVE (NEGATIVE)
[2022-05-16 10:33] LABS: RBC,URINE 0-2 /HPF
[2022-05-16 10:34] LABS: BACTERIA,URINE NEGATIVE /HPF; WBC,URINE 0-2 /HPF
== END ==
LOC: LAB FS 09:54
PROVIDERS: ATTEND Registered Nurse Emergency
DX: R31.9 Hematuria, unspecified (principal)
CPT/HCPCS: 81000

== ENCOUNTER 2022-08-16 11:22 | Emergency (ER) | payer OTHER ==
[~2022-08-16] VITALS: Ht 167.7 cm; Wt 81.6 kg
[2022-08-16] MEDS ORDERED: CEPH500T PO (13:24)
--- NOTE | 2022-08-16 13:24 | ED General ---
General Chief Complaint: General Problems/Pain Stated Complaint: LT LEG REDNESS; EPIGASTRIC PAIN Nursing Triage Note: Patient presents to the ED with c/o left lower redness, tenderness, and epigastric pain. Reports epigastric tenderness over the past couple of months. States small area to left calf has been tender for several days with redness starting today. She also reports intermittent left ankle swelling since October. Source of Information: Patient Exam Limitations: No Limitations History of Present Illness Date Seen by Provider: Aug 16, 2022 Time Seen by Provider: 13:10 Initial Comments This 32-year-old young lady presents to the emergency room with complaints of a sore erythematous spot on her left calf. She noted tenderness in this area starting about a month ago and has now noted the redness as well. This area is slightly indurated. She also complains of upper abdominal pain in the right upper quadrant and epigastrium that is most prominent under the right costal margin. It has been intermittent for months. It is sometimes worse with eating. She noted increased soreness in the right upper quadrant this morning. She has significant nausea without vomiting. She does also report constipation and has not had a bowel movement for several days. Allergies and Home Medications Allergies Coded Allergies: No Known Drug Allergies (Unverified , 08/30/20) Patient Home Medication List Home Medication List Reviewed: Yes Acetaminophen (Acetaminophen) 500 Mg Tablet, 1,000 MG PO Q8HR Prescribed by: RICHARD CHIU on 09/18/20 1017 Cephalexin (Cephalexin) 500 Mg Tablet, 500 MG PO QID Prescribed by: URIAH NUNEZ on 08/16/22 1324 Docusate Sodium (Dok) 100 Mg Capsule, 100 MG PO BID Prescribed by: RICHARD CHIU on 09/18/20 1017 Ibuprofen (Ibu) 600 Mg Tablet, 600 MG PO Q6HR Prescribed by: RICHARD CHIU on 09/18/20 1017 Nortriptyline HCl (Nortriptyline HCl) 25 Mg Capsule, 25 MG PO HS, (Reported) Entered as Reported by: LIDYA BAI on 08/30/20 1330 Oxycodone Hcl (Oxyir Tablet) 5 Mg Tab, 5 MG PO Q4HR Prescribed by: RICHARD CHIU on 09/18/20 1017 Review of Systems Review of Systems Constitutional: no symptoms reported EENTM: no symptoms reported Respiratory: no symptoms reported Cardiovascular: no symptoms reported Gastrointestinal: see HPI Genitourinary: no symptoms reported : No Musculoskeletal: no symptoms reported Skin: see HPI Psychiatric/Neurological: No Symptoms Reported Hematologic/Lymphatic: No Symptoms Reported Immunological/Allergic: no symptoms reported Past Qsoumsa-Aetpcf-Raprdd Hx Patient Social History Tobacco Use?: No Use of E-Cig and/or Vaping dev: No Substance use?: No Alcohol Use?: No Pt feels they are or have been: No Immunizations Up To Date PED Vaccines UTD: No Seasonal Allergies Seasonal Allergies: Yes (MILD) Past Medical History Surgery/Hospitalization HX: x5; Hysterectomy Surgeries: Yes (CS X5) Section, Hysterectomy Respiratory: No Currently Using CPAP: No Currently Using BIPAP: No Cardiac: No Neurological: Yes Headaches /Migraines, Seizure Disorder : No Female Reproductive Disorders: Menstrual Problems [facility] History: Hysterectomy Sexually Transmitted Disease: No HIV/AIDS: No Genitourinary: No Gastrointestinal: No Musculoskeletal: Yes Chronic Back Pain Endocrine: No HEENT: Yes (GLASSES) Loss of Vision: Denies Hearing Impairment: Denies Cancer: No Psychosocial: No Integumentary: No Blood Disorders: No Adverse Reaction/Blood Tranf: No (HAS HAD BLOOD WITH NO REACTION) Family Medical History Cardiovascular disease 19 FATHER Completed stroke 19 MOTHER (tia) FHx: multiple sclerosis 19 MOTHER Hypertension 19 FATHER Respiratory disorder 19 FATHER Physical Exam Vital Signs Vital Signs - First Documented 08/16/22 12:06 Temp 35.9 Pulse 109 Resp 16 B/P (MAP) 110/84 (93) Pulse Ox 99 O2 Delivery Room Air Capillary Refill : Less Than 3 Seconds Height, Weight, BMI Height: 5'6.00" Weight: 182lbs. 0.3oz. 82.069822iy; 29.00 BMI Method: General Appearance: No Apparent Distress, WD/WN HEENT: PERRL/EOMI, Normal ENT Inspection Neck: Normal Inspection Respiratory: Lungs Clear, Normal Breath Sounds, No Accessory Muscle Use, No Respiratory Distress Cardiovascular: Regular Rate, Rhythm, No Edema, No Murmur Gastrointestinal: Normal Bowel Sounds, Soft, Tenderness (Mild tenderness in the right upper quadrant and epigastrium with negative Trejo sign) Extremity: No Calf Tenderness, No Pedal Edema Skin: Warm/Dry, Other (Subtle erythema of a slightly indurated patch of skin measuring about 2 to 3 cm in diameter on the left posterior calf. No fluctuance or fullness to suggest abscess. Mildly tender to touch.) Progress/Results/Core Measures Suspected Sepsis SIRS Temperature: Pulse: 109 Respiratory Rate: 16 Blood Pressure 110 /84 Mean: 93 Results/Orders Vital Signs/I&O 08/16/22 08/16/22 12:06 13:26 Temp 35.9 35.9 Pulse 109 89 Resp 16 16 B/P (MAP) 110/84 (93) 115/78 Pulse Ox 99 99 O2 Delivery Room Air Room Air Capillary Refill : Less Than 3 Seconds Blood Pressure Mean: 93 Departure Impression Primary Impression: Cellulitis of left leg Additional Impressions: Right upper quadrant pain Constipation Qualified Codes: K59.00 - Constipation, unspecified Disposition: 01 HOME, SELF-CARE Condition: Critical Departure-Patient Inst. Decision time for Depature: 13:21 Referrals: TESSY TORRES MD (PCP) Primary Care Physician Patient Instructions: Constipation in Adults, Cellulitis (Skin Infection), Adult ED Add. Discharge Instructions: Complete the antibiotics as prescribed. If the skin spot does not clear up after 1 week of antibiotics, you will need reevaluation by your primary care provider. Your abdominal pain may be related to constipation. Treat constipation with MiraLAX (polyethylene glycol) 2 or 3 doses daily until a good clearing of bowel movement is noted. Then use as needed. Adhere to a mostly clear liquid diet until a good bowel movement is produced. Then eat a diet high in fiber including plenty of fruits, vegetables, and whole grains. Avoid excessive meats, cheeses, processed foods, and fast foods. If clearing constipation does not resolve the pain, visit with your primary care provider about further evaluation. The right upper abdomen is the location of your gallbladder. A gallbladder ultrasound may be appropriate if symptoms are unresolved. Fats, greases, and oils tend to worsen the gallbladder problems. Avoid these items until the cause of your pain is clarified. Return to the emergency room if you have worsening symptoms despite following these instructions or if you develop new symptoms such as vomiting, fever, etc. All discharge instructions reviewed with patient and/or family. Voiced understanding. Scripts Cephalexin (Cephalexin) 500 Mg Tablet 500 MG PO QID, #28 TAB Prov: URIAH LANDON MD 08/16/22 Copy Copies To 1: TESSY TORRES MD, JOSHUA T MD Aug 16, 2022 13:24
[2022-08-16 13:26] VITALS: BP 115/78
== END 2022-08-16 13:26 | disposition home or self-care (01) ==
LOC: EDUNIT# 11:22 → ER FS 11:25
DX: L03.116 Cellulitis of left lower limb (principal); K59.00 Constipation, unspecified; R10.11 Right upper quadrant pain; R10.13 Epigastric pain; Z28.310 Unvaccinated for COVID-19
CPT/HCPCS: 99281

== ENCOUNTER 2022-09-25 21:01 | Emergency (ER) | payer OTHER ==
[~2022-09-25] VITALS: Ht 167.7 cm; Wt 82.7 kg
[~2022-09-25 21:01] MED LIST changes: +CEPH500T PO
[2022-09-25 21:13] VITALS: BP 117/78
[2022-09-25 21:24] LABS: BILIRUBIN,URINE NEGATIVE (NEGATIVE); CLARITY,URINE CLOUDY; COLOR,URINE YELLOW; GLUCOSE, URINE (UA) NEGATIVE (NEGATIVE); KETONES,URINE NEGATIVE (NEGATIVE); LEUKOCYTE ESTERASE ,URINE 2+ (NEGATIVE); NITRITE,URINE NEGATIVE (NEGATIVE); PROTEIN,URINE 2+ (NEGATIVE)
--- NOTE | 2022-09-25 21:40 | ED GU-Female ---
General Chief Complaint: - Reproductive Stated Complaint: BLOOD IN URINE,LOWER BACK/ABD PAIN,HEARTRATE HIGH Nursing Triage Note: Pt presents with c/o blood in urine that started approx 3 days ago, with urinary frequency and lower back pain. Pt reports she noticed an elevated heart rate tonight. Source: patient Exam Limitations: no limitations History of Present Illness Date Seen by Provider: Sep 25, 2022 Time Seen by Provider: 21:05 Initial Comments 32-year-old female with no pertinent past medical history coming in due to blood in her urine started roughly 3 days ago, urinary frequency, dysuria, and flank pain worse on the left side. Denies any fever that she knows of, no prior his tory of kidney stones, and otherwise denies any other acute complaints. Has not taken any medicines for it as of yet. Allergies and Home Medications Allergies Coded Allergies: No Known Drug Allergies (Unverified , 08/30/20) Patient Home Medication List Home Medication List Reviewed: Yes Acetaminophen (Acetaminophen) 500 Mg Tablet, 1,000 MG PO Q8HR Prescribed by: RICHARD CHIU on 09/18/20 1017 Cefdinir (Cefdinir) 300 Mg Capsule, 300 MG PO BID Prescribed by: NELLA DELACRUZ on 09/25/22 2150 Cephalexin (Cephalexin) 500 Mg Tablet, 500 MG PO QID Prescribed by: URIAH NUNEZ on 08/16/22 1324 Docusate Sodium (Dok) 100 Mg Capsule, 100 MG PO BID Prescribed by: RICHARD CHIU on 09/18/20 1017 Hydrocodone Bit/Acetaminophen (HYDROcodone/APAP 5 MG/325 MG TAB) 1 Tab Tab, 1 TAB PO Q6H PRN for PAIN-SEVERE (8-10) Prescribed by: NELLA DELACRUZ on 09/25/22 2150 Ibuprofen (Ibu) 600 Mg Tablet, 600 MG PO Q6HR Prescribed by: RICHARD CHIU on 09/18/20 1017 Nortriptyline HCl (Nortriptyline HCl) 25 Mg Capsule, 25 MG PO HS, (Reported) Entered as Reported by: LIDYA BAI on 08/30/20 1330 Oxycodone Hcl (Oxyir Tablet) 5 Mg Tab, 5 MG PO Q4HR Prescribed by: RICHARD CHIU on 09/18/20 1017 Review of Systems Review of Systems Constitutional: No fever EENTM: no symptoms reported Respiratory: no symptoms reported Cardiovascular: no symptoms reported Gastrointestinal: no symptoms reported Genitourinary: see HPI Musculoskeletal: no symptoms reported Skin: no symptoms reported Psychiatric/Neurological: No Symptoms Reported Endocrine: No Symptoms Reported Hematologic/Lymphatic: No Symptoms Reported All Other Systemes Reviewed Negative Unless Noted: Yes Past Wqfyhhl-Bdsidq-Gnduiq Hx Patient Social History Tobacco Use?: No Immunizations Up To Date PED Vaccines UTD: No Influenza Vaccine Up-to-Date: No; Not Current Seasonal Allergies Seasonal Allergies: Yes (MILD) Past Medical History Surgery/Hospitalization HX: x5; Hysterectomy Surgeries: Yes (CS X5) Section, Hysterectomy Respiratory: No Currently Using CPAP: No Currently Using BIPAP: No Cardiac: No Neurological: Yes Headaches /Migraines, Seizure Disorder Female 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 Sexually Transmitted Disease: No HIV/AIDS: No Genitourinary: No Gastrointestinal: No Musculoskeletal: Yes Chronic Back Pain Endocrine: No HEENT: Yes (GLASSES) Loss of Vision: Denies Hearing Impairment: Denies Cancer: No Psychosocial: No Integumentary: No Blood Disorders: No Adverse Reaction/Blood Tranf: No (HAS HAD BLOOD WITH NO REACTION) Family Medical History Cardiovascular disease 19 FATHER Completed stroke 19 MOTHER (tia) FHx: multiple sclerosis 19 MOTHER Hypertension 19 FATHER Respiratory disorder 19 FATHER Physical Exam Vital Signs Vital Signs - First Documented 09/25/22 21:13 Temp 36.7 Pulse 132 Resp 16 B/P (MAP) 117/78 (91) Capillary Refill : Less Than 3 Seconds Height, Weight, BMI Height: 5'6.00" Weight: 182lbs. 0.3oz. [id number]; 29.00 BMI Method: General Appearance: WD/WN, no apparent distress HEENT: PERRL/EOMI, normal ENT inspection, pharynx normal Neck: non-tender, full range of motion, supple, normal inspection Cardiovascular: regular rate, rhythm, no edema, no murmur Respiratory: chest non-tender, lungs clear, normal breath sounds, no respiratory distress, no accessory muscle use Gastrointestinal: normal bowel sounds, non tender, soft; No distended, No guarding, No rebound Back: normal inspection, no CVA tenderness, no vertebral tenderness Extremities: normal range of motion, non-tender, normal inspection, no pedal edema, no calf tenderness, normal capillary refill Neurologic/Psychiatric: no motor/sensory deficits, alert, normal mood/affect Skin: normal color, warm/dry Lymphatic: no adenopathy Progress/Results/Core Measures Suspected Sepsis SIRS Temperature: Pulse: 132 Respiratory Rate: 16 Blood Pressure 117 /78 Mean: 91 Results/Orders Lab Results Laboratory Tests Test 09/25/22 21:05 Range/Units Urine Color YELLOW Urine Clarity CLOUDY Urine pH 6.0 5-9 Urine Specific [place] 1.010 L 1.016-1.022 Urine Protein 2+ H NEGATIVE Urine Glucose (UA) NEGATIVE NEGATIVE Urine Ketones NEGATIVE NEGATIVE Urine Nitrite NEGATIVE NEGATIVE Urine Bilirubin NEGATIVE NEGATIVE Urine Urobilinogen 1.0 < = 1.0 MG/DL Urine Leukocyte Esterase 2+ H NEGATIVE Urine RBC (Auto) 3+ H NEGATIVE Urine RBC 10-25 H /HPF Urine WBC 10-25 H /HPF Urine Squamous Epithelial Cells 0-2 /HPF Urine Crystals NONE /LPF Urine Bacteria FEW H /HPF Urine Casts NONE /LPF Urine Mucus SMALL H /LPF Urine Culture Indicated YES Urine Test NEGATIVE NEGATIVE My Orders Orders - NELLA DELACRUZ MD Ua Culture If Indicated (09/25/22 21:16) Hcg,Qualitative Urine (09/25/22 21:24) Ceftriaxone (Rocephin) (09/25/22 21:45) Lidocaine 1% Inj 20 Ml (Xylocaine 1% Inj (09/25/22 21:45) Hydrocodone/Apap 5/325 Tablet (Lortab 5 (09/25/22 21:45) Rx-Hydrocodone/Apap 5-325 Mg (Rx-Vicodin (09/25/22 21:45) Urine Culture (09/25/22 21:05) Vital Signs/I&O 09/25/22 21:13 Temp 36.7 Pulse 132 Resp 16 B/P (MAP) 117/78 (91) Capillary Refill : Less Than 3 Seconds Blood Pressure Mean: 91 Progress Note : Progress Note 32-year-old female with above history coming in due to dysuria, hematuria, and left greater than right flank pain. The patient was tachycardic on presentation but then pain. Urinalysis was sent. I did a [id number] ultrasound showing no hydronephrosis bilaterally. She was given IM ceftriaxone as well as oral hydrocodone for pain and concerns for infection. We will treat her as if this is pyelonephritis. She does not have significant risk factors and I believe is appropriate for outpatient management. I believe she is otherwise stable for discharge with outpatient follow-up. She was sent home with strict return precautions. Departure Impression Primary Impression: Pyelonephritis Disposition: HOME, SELF-CARE Condition: Stable Departure-Patient Inst. Decision time for Depature: 22:10 Referrals: TESSY TORRES MD (PCP/Family) Primary Care Physician Patient Instructions: Kidney Infection (DC) Add. Discharge Instructions: I am concerned you have a kidney infection. You will be on antibiotics for the next 10 days. Start them tomorrow since you already received an antibiotic in the ER. Take ibuprofen as needed for pain. If you have pain on top of that you can take the hydrocodone. It is always possible you could have a small kidney stone that is passing. If so symptoms typically improve rapidly after it has passed. If symptoms persist past being on the antibiotics, I want you to follow-up with a urologist of your choosing. If he cannot get into a urologist, then follow back up with your PCP. Scripts Hydrocodone Bit/Acetaminophen (HYDROcodone/APAP 5 MG/325 MG TAB) 1 Tab Tab 1 TAB PO Q6H PRN for PAIN-SEVERE (8-10) for 3 Days, #12 TAB 0 Refills Prov: NELLA DELACRUZ MD 09/25/22 Cefdinir (Cefdinir) 300 Mg Capsule 300 MG PO BID for 10 Days, #20 CAP 0 Refills Prov: NELLA DELACRUZ MD 09/25/22 Work/School Note: Work Release Form Date Seen in the Emergency Department: Sep 25, 2022 Return to Work: Sep 27, 2022 Restrictions: No Restrictions NELLA DELACRUZ MD Sep 25, 2022 21:40
[2022-09-25 21:41] LABS: BACTERIA,URINE FEW /HPF; SQUAMOUS EPITHELIAL CELL,UR 0-2 /HPF
[2022-09-25] MEDS ORDERED: cefTRIAXone 1,000 MG VIAL IM ONE (21:45)
[2022-09-25] MEDS ORDERED: LIDOCAINE 1% INJ 20 ML VIAL INJ ONE (21:45)
[2022-09-25] MEDS ORDERED: HYDROcodone/APAP 5 MG/325 MG (LORTAB) TAB PO ONE (21:45)
[2022-09-25] MEDS ORDERED: CEFD300C3 PO (21:50)
[2022-09-25] MEDS ORDERED: ACHD5005 PO (21:50)
== END 2022-09-25 22:07 | disposition home or self-care (01) ==
LOC: EDUNIT# 21:01 → ER FS 21:02
DX: N12 Tubulo-interstitial nephritis, not specified as acute or chronic (principal); Z32.02 Encounter for pregnancy test, result negative; Z28.310 Unvaccinated for COVID-19
CPT/HCPCS: 81000; 84703; 87088; 99284

== ENCOUNTER 2023-05-28 09:20 | Emergency (ER) | payer OTHER ==
[~2023-05-28] VITALS: Ht 167 cm; Wt 79.0 kg
[~2023-05-28 09:20] MED LIST changes: +CEFD300C3 PO
--- NOTE | 2023-05-28 09:26 | ED GI ---
General Chief Complaint: Abdominal/GI Problems Stated Complaint: BLOODY STOOL History of Present Illness Date Seen by Provider: May 28, 2023 Time Seen by Provider: 09:25 Initial Comments 33 yr F with PMH of abdominal hernia surgical repair yesterday at [facility], is here with complaints of rectal bleeding with one episode last night and one episode today. Patient describes it as a puddle in the toilet. Patient also described it as painful in the rectal area when straining. Patient has hard stools and intermittently gets constipated. Denies abdominal pain, nausea and vomiting, fever and chills, dysuria, hematuria, hematemesis. Allergies and Home Medications Allergies Coded Allergies: No Known Drug Allergies (Unverified , 08/30/20) Patient Home Medication List Home Medication List Reviewed: Yes Acetaminophen (Acetaminophen) 500 Mg Tablet, 1,000 MG PO Q8HR Prescribed by: RICHARD CHIU on 09/18/20 1017 Cefdinir (Cefdinir) 300 Mg Capsule, 300 MG PO BID Prescribed by: NELLA DELACRUZ on 09/25/22 2150 Cephalexin (Cephalexin) 500 Mg Tablet, 500 MG PO QID Prescribed by: URIAH NUNEZ on 08/16/22 1324 Docusate Sodium (Dok) 100 Mg Capsule, 100 MG PO BID Prescribed by: RICHARD CHIU on 09/18/20 1017 Hydrocodone Bit/Acetaminophen (HYDROcodone/APAP 5 MG/325 MG TAB) 1 Tab Tab, 1 TAB PO Q6H PRN for PAIN-SEVERE (8-10) Prescribed by: NELLA DELACRUZ on 09/25/22 2150 Ibuprofen (Ibu) 600 Mg Tablet, 600 MG PO Q6HR Prescribed by: RICHARD CHIU on 09/18/20 1017 Nortriptyline HCl (Nortriptyline HCl) 25 Mg Capsule, 25 MG PO HS, (Reported) Entered as Reported by: LIDYA BAI on 08/30/20 1330 Oxycodone Hcl (Oxyir Tablet) 5 Mg Tab, 5 MG PO Q4HR Prescribed by: RICHARD CHIU on 09/18/20 1017 Review of Systems Review of Systems Constitutional: no symptoms reported EENTM: No Symptoms Reported Respiratory: No Symptoms Reported Cardiovascular: No Symptoms Reported Gastrointestinal: Rectal Bleeding Genitourinary: No Symptoms Reported Musculoskeletal: no symptoms reported Skin: no symptoms reported Endocrine: No Symptoms Reported Past Xbthqzt-Kmsmhh-Synehi Hx Immunizations Up To Date PED Vaccines UTD: No Seasonal Allergies Seasonal Allergies: Yes (MILD) Past Medical History Surgery/Hospitalization HX: x5; Hysterectomy Surgeries: Yes (CS X5) Section, Hysterectomy Respiratory: No Currently Using CPAP: No Currently Using BIPAP: No Cardiac: No Neurological: Yes Headaches /Migraines, Seizure Disorder Female 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 Sexually Transmitted Disease: No HIV/AIDS: No Genitourinary: No Gastrointestinal: No Musculoskeletal: Yes Chronic Back Pain Endocrine: No HEENT: Yes (GLASSES) Loss of Vision: Denies Hearing Impairment: Denies Cancer: No Psychosocial: No Integumentary: No Blood Disorders: No Adverse Reaction/Blood Tranf: No (HAS HAD BLOOD WITH NO REACTION) Family Medical History Cardiovascular disease 19 FATHER Completed stroke 19 MOTHER (tia) FHx: multiple sclerosis 19 MOTHER Hypertension 19 FATHER Respiratory disorder 19 FATHER Physical Exam Vital Signs Capillary Refill : Height/Weight/BMI Height: 5'6.00" Weight: 182lbs. 0.3oz. [id number]; 29.00 BMI Method: General Appearance: WD/WN, no apparent distress HEENT: PERRL/EOMI Neck: non-tender, full range of motion, supple Respiratory: lungs clear Cardiovascular: regular rate, rhythm Gastrointestinal: normal bowel sounds, soft, no organomegaly, other (Patient has a surgical incision in her umbilicus from surgery done yesterday. Wound is healing well, no discharge. No tenderness. Patient is wearing abdominal binder ) Rectal: normal rectal tone, heme positive stool, hemorrhoids (Internal hemorrhoid on rectal exam at the 7:00 position. No obvious bleeding visualized, hemorrhoids are not thrombosed.) Back: normal inspection, no CVA tenderness Neurologic/Psychiatric: alert, oriented x 3 Skin: normal color Lymphatic: no adenopathy Progress/Results/Core Measures Progress Progress Note : Progress Note 1. INTERNAL HEMORRHOIDS: - FOB: positive. No visualized bleeding on rectal exam, vitals stable and no abdominal pain. - Preparation H cream to be applied 3 times a day - Over the counter Preparation H wipes advised - Over the counter Metamucil advised - Advised high fiber diet and adequate hydration. - Follow up with PCP or general surgery in 7 days -The patient was seen in the ED, and treated appropriately to presentation at a specific point in time. Patient is informed that there is a possibility that disease and illness can evolve and change in acuity rapidly or slowly after patient is discharged from the ER. Precautionary advice given to the patient for immediate return to ER if symptoms worsen or do not resolve, and to seek emergency care sooner rather than later. Pt also advised on the importance of PCP follow up and compliance with management and follow up plan with PCP and/or specialist, as this is part of the management plan. Pt verbally expressed understanding. Departure Impression Primary Impression: Internal hemorrhoids Disposition: HOME, SELF-CARE Condition: Stable Departure-Patient Inst. Referrals: KATHARINA ELLIOTT APRN (PCP) Primary Care Physician MIK HERNANDEZ DO (Family) Primary Care Physician Patient Instructions: Hemorrhoids (DC) Add. Discharge Instructions: - Preparation H cream to be applied 3 times a day - Over the counter Preparation H wipes advised - Over the counter Metamucil advised - Advised high fiber diet and adequate hydration. - Follow up with PCP or general surgery in 7 days All discharge instructions reviewed with patient and/or family. Voiced understanding. Scripts Phenyleph/Pramoxin/Glycr/W.pet (Preparation H Cream) 0.25 %-1 % Cream..g. 26 GM RC TID for 10 Days, #2 EA Prov: VIOLETTE CORRIGAN MD 05/28/23 VIOLETTE CORRIGAN MD May 28, 2023 09:26
[2023-05-28 09:31] VITALS: BP 124/77
[2023-05-28] MEDS ORDERED: PHEN26CR2 RC (09:46)
== END 2023-05-28 10:00 | disposition home or self-care (01) ==
LOC: EDUNIT# 09:20 → ER FS 09:21
DX: K64.8 Other hemorrhoids (principal)
CPT/HCPCS: 82274